=== PATIENT | male | born 1985 | race Caucasian/White ===

== ENCOUNTER 2021-05-26 19:00 | Emergency (ER) | payer OTHER, SELFPAY ==
[2021-05-26 19:08] VITALS: BP 115/62; PULSE 68; RESP 16; TEMP 36.7; O2SAT 98; BMI 23.7
[2021-05-26 19:54] VITALS: BP 131/69; PULSE 70; RESP 16; TEMP 36.2; O2SAT 96
[2021-05-26] MEDS: BACITRACIN OINT 0.9 GM PCKT 1 APPLIC TOP (22:12)
[2021-05-26 22:27] VITALS: BP 115/72; PULSE 60; RESP 16; O2SAT 99
--- NOTE | 2021-05-26 22:27 | ED_ITS ---
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 Comes in for further evaluation. He describes moderate pain, bleeding is controlled. Review of Systems Review of Systems Narrative: No recent fever, cough, chills. No nausea, vomiting diarrhea. No decreased sensation or musculoskeletal complaints of the upper extremities Patient History tobacco type: smokeless tobacco alcohol intake frequency: 0-2 drinks per day Substance Use Type: does not use Exam Narrative Exam Narrative: General: Alert appropriate in no acute distress Respiratory: Able to speak in full sentences, no obvious respiratory distress Skin: No obvious rashes, warm and dry Neurologic: Grossly intact no obvious asymmetries or abnormalities Psych: appropriate insight and affect, cooperative Extremity: Right index finger with a 1 cm laceration just on the tip cutting off the last 2 mm of his fingernail and not involving the nail bed. Bleeding is controlled. Wound is cleaned single suture placed. Initial Vital Signs Initial Vital Signs: Vital Signs Temperature 98.0 F 05/26/21 19:08 Pulse Rate 68 05/26/21 19:08 Respiratory Rate 16 05/26/21 19:08 Blood Pressure 115/62 05/26/21 19:08 Pulse Oximetry 98 05/26/21 19:08 Procedures Laceration Repair Right index finger: Time of procedure: 22:29 Site: upper extremity Side (If applicable): right Size (cm): 1 Description: linear Depth: simple, single layer Local Anesthetic: bupivacaine 0.5% Amount of anesthesia used (mL): 3 Pre-repair: wound explored and deep structures intact Skin layer closed with: nylon Size (cm): 4-0 Number of sutures: 1 Technique: simple, interrupted Course Orders Ordered: Discontinued Medications Bacitracin (Bacitracin Oint 0.9 Gm Pckt) 1 applic TOP NOW ONE Stop: 05/26/21 22:08 Last Admin: 05/26/21 22:12 Dose: 1 applic Documented by: EMILE Vital Signs Vital signs: Vital Signs - 8 hr 05/26/21 19:08 05/26/21 19:54 Temperature 98.0 F 97.1 F L Pulse Rate 68 70 Respiratory Rate 16 16 Blood Pressure 115/62 131/69 Pulse Oximetry 98 96 MDM - Wound/Laceration MDM Narrative Medical decision making narrative: 35-year-old gentleman with no significant medical issues has a small laceration to the distal portion right index finger after encountering a table saw this afternoon. The wound is shallow, does not extend significantly into the pad of the finger, does not come to the bone and no tendons are involved. neurovascularly intact. Wounds cleaned single sutures placed. Wound care instructions and follow-up instructions are reviewed. Patient is safe for home discharge Discharge Plan Departure Patient Disposition: Home Clinical Impression: Finger laceration Qualifiers: Encounter type: initial encounter Finger: index finger Damage to nail status: with damage Foreign body presence: without foreign body Laterality: right Qualified Code(s): S61.310A - Laceration without foreign body of right index finger with damage to nail, initial encounter Instructions: DI for Minor Laceration Activity Restrictions/Additional Instructions: Thank you for coming in today Fortunately, a table saw I only did a little bit of damage to the tip of your finger. The area was cleaned an a single suture was placed to help the wound heal faster. Please use antibiotic ointment and a Band-Aid to keep the wound covered. The s uture will need to come out on or about June 02. If you have any signs of infection, please return to the ER. I hope you heal quickly Referrals: Virginia Cox ND [Primary Care Provider] -
[2021-05-26 22:29] VITALS: BP 115/72; PULSE 62; RESP 17; O2SAT 99
== END 2021-05-26 22:31 | disposition home or self-care (01) ==
PROVIDERS: Emergency Provider Emergency Medicine; PCP Naturopath
DX: S61.310A Laceration without foreign body of right index finger with damage to nail, initial encounter (principal); W31.2XXA Contact with powered woodworking and forming machines, initial encounter; Y99.0 Civilian activity done for income or pay
CPT/HCPCS: 12001; 99283

== ENCOUNTER → 2022-06-03 11:04 | Outpatient (CLI) | payer OTHER, SELFPAY ==
[2022-06-03 12:12] LABS: Add Manual Diff / Slide Review NO; Basophils Absolute Auto 0 /uL (0-100); Basophils Percent Auto 0.9 % (0-2); Eosinophils Absolute Auto 100 /uL (0-450); Eosinophils Percent Auto 1.5 % (2-4); Hematocrit 41.3 % (41-53); Hemoglobin 14.5 g/dL (13.5-17.5); Lymphocytes Absolute Auto 1700 /uL (1100-4500); Lymphocytes Percent Auto 36.4 % (25-40); Mean Corpuscular HGB Conc 35.2 % (30-36); Mean Corpuscular Hemoglobin 31.1 PG (26-34); Mean Corpuscular Volume 88.3 fL (80-100); Monocytes Absolute Auto 500 /uL (0-900); Monocytes Percent Auto 11.5 % (3-14); Neutrophils Absolute Auto 2300 /uL (1500-7000); Neutrophils Percent Auto 49.7 % (50-75); Platelet Count 184 X10^3/uL (150-400); Red Blood Cell Count 4.68 X10^6/uL (4.5-5.9); Red Cell Distribution Width 12.9 % (11.6-14.8); White Blood Cell Count 4.6 X10^3/uL (4.5-11.0)
[2022-06-03 13:50] LABS: Alanine Aminotransferase 17 IU/L (<50); Albumin 4.6 g/dL (3.5-5.0); Albumin Globulin Ratio 1.6 (1.0-2.8); Alkaline Phosphatase 59 U/L (38-126); Aspartate Aminotransferase 30 IU/L (17-59); BUN Creatinine Ratio 14.7 (6-22); Bilirubin Total 0.7 mg/dL (0.2-1.3); Blood Urea Nitrogen 14 mg/dL (9-20); Calcium 9.1 mg/dL (8.4-10.2); Carbon Dioxide 28 mmol/L (22-32); Chloride 103 mmol/L (98-107); Cholesterol 206 mg/dL (140-199); Estimated Glomerular Filt Rate > 60 mL/min (>60); Globulin 2.9 g/dL (1.7-4.1); Glucose 100 mg/dL (70-100); HDL Cholesterol 70 mg/dL (40-60); HEMOLYSIS < 15 (0-50); LDL Cholesterol Calculated 123 mg/dL (<100); Potassium 3.9 mmol/L (3.4-5.1); Sodium 142 mmol/L (137-145); Total Protein 7.5 g/dL (6.3-8.2); Triglycerides 66 mg/dL (35-150)
[2022-06-03 14:32] LABS: Thyroid Stimulating Hormone 0.948 uIU/mL (0.47-4.68)
== END ==
PROVIDERS: PCP Naturopath; Referring Provider Naturopath; Visit Provider Naturopath
DX: Z00.00 Encounter for general adult medical examination without abnormal findings (principal); R53.83 Other fatigue
CPT/HCPCS: 36415; 80053; 80061; 84443; 85025

== ENCOUNTER → 2023-12-01 10:29 | Outpatient (CLI) | payer OTHER, SELFPAY ==
[2023-12-01 11:07] LABS: Add Manual Diff / Slide Review NO; Basophils Absolute Auto 0 /uL (0-100); Basophils Percent Auto 0.8 % (0-2); Eosinophils Absolute Auto 100 /uL (0-450); Eosinophils Percent Auto 2.2 % (2-4); Hematocrit 44.1 % (41-53); Hemoglobin 15.3 g/dL (13.5-17.5); Lymphocytes Absolute Auto 2000 /uL (1100-4500); Lymphocytes Percent Auto 39.5 % (25-40); Mean Corpuscular HGB Conc 34.7 % (30-36); Mean Corpuscular Hemoglobin 31.9 PG (26-34); Mean Corpuscular Volume 91.8 fL (80-100); Monocytes Absolute Auto 600 /uL (0-900); Monocytes Percent Auto 11.3 % (3-14); Neutrophils Absolute Auto 2300 /uL (1500-7000); Neutrophils Percent Auto 46.2 % (50-75); Platelet Count 207 X10^3/uL (150-400); Red Cell Distribution Width 13.1 % (11.6-14.8)
[2023-12-01 11:20] LABS: Alanine Aminotransferase 31 IU/L (<50); Albumin Globulin Ratio 1.9 (1.0-2.8); Alkaline Phosphatase 55 U/L (38-126); Aspartate Aminotransferase 42 IU/L (17-59); BUN Creatinine Ratio 13.5 (6-22); Bilirubin Total 0.8 mg/dL (0.2-1.3); Blood Urea Nitrogen 13 mg/dL (9-20); Calcium 9.7 mg/dL (8.4-10.2); Carbon Dioxide 29 mmol/L (22-32); Chloride 108 mmol/L (98-107); Cholesterol 233 mg/dL (140-199); Estimated Glomerular Filt Rate > 60 mL/min (>60); Gamma Glutamyl Transpeptidase 19 U/L (15-73); Globulin 2.7 g/dL (1.7-4.1); Glucose 97 mg/dL (70-100); HEMOLYSIS < 15 (0-50); Potassium 4.4 mmol/L (3.4-5.1); Sodium 143 mmol/L (137-145); Total Protein 7.7 g/dL (6.3-8.2); Triglycerides 119 mg/dL (35-150)
[2023-12-01 11:29] LABS: HDL Cholesterol 115 mg/dL (40-60); LDL Cholesterol Calculated 94 mg/dL (<100)
== END ==
PROVIDERS: PCP Naturopath; Referring Provider Naturopath; Visit Provider Naturopath
DX: Z00.00 Encounter for general adult medical examination without abnormal findings (principal); F10.10 Alcohol abuse, uncomplicated
CPT/HCPCS: 36415; 80053; 80061; 82977; 85025

== ENCOUNTER 2025-01-15 06:50 | Inpatient (IN) | payer OTHER, SELFPAY ==
[2025-01-15] VITALS (42 sets, daily range): BP systolic 120–147; BP diastolic 66–98; PULSE 62–94; RESP 14–32; TEMP 36.6–37.1; O2SAT 94–98; BMI 24.3; BMI 26.3
--- NOTE | 2025-01-15 07:18 | ED.ABDPAIN ---
HPI - Abdominal Pain General Chief Complaint: Abdominal Pain Stated Complaint: Stomach pain this morning Time Seen by Provider: 01/15/25 07:03 Source: patient, RN notes reviewed and old records reviewed Mode of arrival: Ambulatory Limitations: no limitations History of Present Illness HPI narrative: 39-year-old male with no reported medical issues with complaint of abdominal pain. Patient states woke up at 2:00 a.m. with a epigastric abdominal pain states it has a little bit towards his left shoulder. But that did not start until later in the day. He denies any fevers, denies any nausea states he induced emesis once to see if it would help his symptoms which it did not. Patient states he had normal bowel movement yesterday has not had any diarrhea overnight. No black or bloody stools. Denies dysuria, urgency or hematuria or other urinary changes. States pain is otherwise remain localized to that area. Has not had similar symptoms in the past. States movement makes it worse. Tried [id number] gas medication and peppermint oil without improvement. Patient states no daily medications. No prior surgeries. No known drug allergies. Uses smokeless tobacco, denies any regular alcohol use, no recreational drugs. He was accompanied by his . Related Data Allergies Allergy/AdvReac Type Severity Reaction Status Date / Time No Known Drug Allergies Allergy Verified 01/15/25 07:00 Review of Systems Review of Systems ROS Unobtainable: All systems reviewed & are unremarkable except as noted in HPI and below Patient History tobacco type: smokeless tobacco alcohol intake frequency: 0-2 drinks per day Exam Narrative Exam Narrative: GENERAL: Alert and oriented x three, moderate distress HEENT: Head normocephalic, atraumatic, EOMI, pupils reactive, face symmetric, moist mucous membranes NECK: Supple, full range of motion CARDIOVASCULAR: Regular rate and rhythm without murmurs, rubs or gallops. RESPIRATORY: Breath sounds equal bilaterally, no wheezes rales or rhonchi. ABDOMEN: Soft, mild epigastric tenderness. Normoactive bowel sounds all 4 quadrants. No guarding or rebound, rigidity, no mass, no pulsatile mass or bruit. : No CVA tenderness EXTREMITIES: Normal range of motion, no clubbing or edema. Neurovascularly intact. Positive pulses bilateral lower extremities. NEUROLOGICAL: Cranial nerves II through XII grossly intact. Moving all extremities SKIN: Warm, dry, no petechiae, no rashes or lesions. Initial Vital Signs Initial Vital Signs: Vital Signs Temperature 97.8 F 01/15/25 07:00 Pulse Rate 71 01/15/25 07:00 Respiratory Rate 16 01/15/25 07:00 Blood Pressure 129/71 01/15/25 07:00 Pulse Oximetry 96 01/15/25 07:00 Oxygen Delivery Method Room Air 01/15/25 07:00 Course Orders Ordered: ED Orders 01/15/25 07:04 EKG-12 Lead Stat 01/15/25 07:29 CT abdomen pelvis w con Stat 01/15/25 07:35 Complete Blood Count AUTO DIFF Stat Comprehensive Metabolic Panel Stat ETOH [Ethanol (ETOH)] Stat Lipase Stat dexmedeTOMIDine in 0.9 % NaCL (Precedex) 400 mcg in 100 mls @ 4.309 mls/hr IV TITRATE GINGER; Protocol Discontinued Medications Sodium Chloride (Normal Saline 0.9%) 1,000 mls @ 1,000 mls/hr IV BOLUS ONE Stop: 01/15/25 08:32 Last Infusion: 01/15/25 09:23 Dose: Infused Documented By: Admin: 01/15/25 08:07 Dose: 1,000 mls/hr Documented By: RB Ketorolac Tromethamine (Ketorolac 30 Mg/Ml Vial) 15 mg IV NOW ONE Stop: 01/15/25 07:29 Last Admin: 01/15/25 08:06 Dose: 15 mg Documented By: RB Morphine Sulfate (Morphine 4 Mg/Ml Inj) 4 mg IV NOW ONE Stop: 01/15/25 09:16 Last Admin: 01/15/25 09:40 Dose: Not Given Documented By: RB Morphine Sulfate (Morphine 4 Mg/Ml Inj) 4 mg IV NOW ONE Stop: 01/15/25 10:41 Last Admin: 01/15/25 10:54 Dose: 4 mg Documented By: RB Ondansetron HCl (Ondansetron 4 Mg/2 Ml Inj) 4 mg IV NOW PRN PRN Reason: Nausea And Vomiting Ondansetron HCl (Ondansetron 4 Mg Odt) 4 mg PO NOW PRN PRN Reason: Nausea And Vomiting Ondansetron HCl (Ondansetron 4 Mg/2 Ml Inj) 4 mg IV NOW ONE Stop: 01/15/25 07:29 Last Admin: 01/15/25 08:07 Dose: 4 mg Documented By: RB Oxycodone HCl (Oxycodone Ir 10 Mg Tablet) 10 mg PO NOW ONE Stop: 01/15/25 09:18 Last Admin: 01/15/25 09:40 Dose: Not Given Documented By: RB Oxycodone HCl (Oxycodone Ir 5 Mg Tablet) 10 mg PO NOW ONE Stop: 01/15/25 09:46 Last Admin: 01/15/25 09:42 Dose: 10 mg Documented By: RB Pantoprazole Sodium (Pantoprazole 40 Mg Vial) 40 mg IV NOW ONE Stop: 01/15/25 07:29 Last Admin: 01/15/25 08:05 Dose: 40 mg Documented By: RB Phenobarbital (Phenobarbital 65 Mg/Ml Vial) 260 mg IV NOW ONE Stop: 01/15/25 09:16 Last Admin: 01/15/25 09:23 Dose: Not Given Documented By: RB Phenobarbital (Phenobarbital 65 Mg/Ml Vial) 260 mg IV NOW ONE Stop: 01/15/25 09:18 Last Admin: 01/15/25 09:43 Dose: 260 mg Documented By: RB Vital Signs Vital signs: Vital Signs - 8 hr 01/15/25 07:00 01/15/25 07:44 01/15/25 07:45 Temperature 97.8 F Pulse Rate 71 72 69 Respiratory Rate 16 25 H 25 H Blood Pressure 129/71 Pulse Oximetry 96 96 97 Oxygen Delivery Method Room Air 01/15/25 07:45 01/15/25 08:00 01/15/25 08:00 Temperature Pulse Rate 81 Respiratory Rate 31 H Blood Pressure 135/82 122/73 Pulse Oximetry 95 Oxygen Delivery Method 01/15/25 08:30 01/15/25 09:00 01/15/25 09:30 Temperature Pulse Rate 77 72 81 Respiratory Rate 22 19 27 H Blood Pressure Pulse Oximetry 97 95 96 Oxygen Delivery Method MDM - Abdominal Pain Lab Data 01/15/25 07:35 01/15/25 07:35 Labs: Lab Results 01/15/25 Range/Units 07:35 WBC 8.1 (4.5-11.0) X10^3/uL RBC 4.39 L (4.5-5.9) X10^6/uL Hgb 14.4 (13.5-17.5) g/dL Hct 41.5 (41-53) % MCV 94.4 (80-100) fL MCH 32.8 (26-34) PG MCHC 34.7 (30-36) % RDW 13.8 (11.6-14.8) % Plt Count 104 L (150-400) X10^3/uL Neut % (Auto) 89.6 H (50-75) % Lymph % (Auto) 3.6 L (25-40) % [place] % (Auto) 6.5 (3-14) % Eos % (Auto) 0.1 L (2-4) % Baso % (Auto) 0.2 (0-2) % Neut # (Auto) 7300 H (9060-6505) /uL Lymph # (Auto) 300 L (1198-4459) /uL [place] # (Auto) 500 (0-900) /uL Eos # (Auto) 0 (0-450) /uL Baso # (Auto) 0 (0-100) /uL Sodium 138 (137-145) mmol/L Potassium 4.3 (3.4-5.1) mmol/L Chloride 100 (98-107) mmol/L Carbon Dioxide 26 (22-32) mmol/L BUN 14 (9-20) mg/dL Creatinine 0.80 (0.66-1.25) mg/dL Estimated GFR > 60 (>60) mL/min BUN/Creatinine Ratio 17.5 (6-22) Glucose 125 H (70-99) mg/dL Calcium 8.9 (8.4-10.2) mg/dL Total Bilirubin 0.8 (0.2-1.3) mg/dL AST 301 H (17-59) IU/L ALT 227 H (<50) IU/L Alkaline Phosphatase 73 (38-126) U/L Total Protein 7.4 (6.3-8.2) g/dL Albumin 4.8 (3.5-5.0) g/dL Globulin 2.6 (1.7-4.1) g/dL Albumin/Globulin Ratio 1.8 (1.0-2.8) Lipase 9193 H (23-300) U/L Ethyl Alcohol 174 H (<10) mg/dL ECG Data Attestation: I personally reviewed and interpreted this ECG as follows: Prior ECG tracings: not available for review Interpretation: Sinus rhythm rate of 69 MA 198 QRS of 102 QTC of 430, no acute ST elevation depression noted incomplete right bundle-branch. No prior for comparison. MDM Narrative Medical decision making narrative: Labs normal white count, hemoglobin 14.4 platelets are 104 were to 0 7 in November of 2023. Predominance of neutrophils. Show normal electrolytes, BUN creatinine, glucose of 125, bilirubin is 0.8 AST is 301, ALT is 227, lipase is 9193. Did review patient's old labs from November 2023 triglycerides were 119. Etoh is 174. EKG sinus rhythm incomplete right bundle CT imaging shows severe hepatic steatosis, no biliary dilation enlarged pancreas with a significant peripancreatic fat stranding and fluid no discrete well-defined fluid collection seen. No pancreatic ductal dilation. No discrete pancreatic mass noted. Findings consistent with acute pancreatitis with [id number] amount of peripancreatic fluid and fat stranding. No discrete drainable well-defined pseudocyst formation at this time. No significant pancreatic ductal dilation or discrete pancreatic mass. No peritoneal free air. No bowel obstruction or abnormal bowel wall thickening. No abscess collection. Severe hepatic steatosis. Patient received fluids, Toradol, Zofran and Protonix, phenobarbital and oxycodone p.o, morphine, Precedex drip 39-year-old male after further discussion states he drinks about a 5th of vodka daily. Patient has not been doing this for at least several weeks. States he was does has a had some withdrawal symptoms currently last drink was last night. No hallucinations or seizures in the past or currently. Patient had some improvement with the pain medication and fluids but still in quite uncomfortable. Spoke with hospitalist Dr. Ruffin at 9:20am, defers admission states if tolerating clear liquid and oral pain medication would sent home. If patient was not tolerating these can call back. Dr. Ruffin recontacted @ 1030: Reviewed patient's chart accepts for inpatient ICU. Discussed patient had phenobarbital still having withdrawal symptoms can start Precedex drip. Did relay patient ask that has not currently wear of alcohol use and he would prefer not to share with her at this time. Discussed with the patient he was agreeable for admission. Critical Care Time Critical Care Time Critical Care Time: Yes Total Critical Care Time: 35 Attestation: The high probability of a clinically significant, sudden or life threatening deterioration of the [systems] system(s) required my full and direct attention, intervention and personal management. The aggregate critical care time was [--] minutes. This time is in addition to time spent performing reported procedures but includes the following: [x] Data Review and interpretation [x] Patient assessment and monitoring of vital signs [x] Documentation [x] Medication orders and management Discharge Plan Departure Patient Disposition: Admitted As Inpatient Clinical Impression: Pancreatitis, Alcohol withdrawal Admit Date/Time: 01/15/25 10:40 Admit Provider: Ammon Ruffin
--- NOTE | 2025-01-15 07:29 | DI.CT.S_ITS ---
PROCEDURE: CT ABDOMEN PELVIS W CON INDICATIONS: epigastric pain, sudden onset 2am. TECHNIQUE: After the administration of intravenous contrast, axial sections acquired from the lung bases to the pubic symphysis. Coronal and sagittal reformats were performed. For radiation dose reduction, the following was used: automated exposure control, adjustment of mA and/or kV according to patient size. COMPARISON: None. FINDINGS: Image quality: Diagnostic. Lower Chest: No significant findings. ABDOMEN: Liver: No solid mass. Severe hepatic steatosis. Gallbladder: No radiopaque gallstones or wall thickening. Biliary ducts: No biliary dilation. Pancreas: Enlarged pancreas with significant peripancreatic fat stranding and fluid. No discrete well-defined fluid collection is seen. No pancreatic ductal dilatation. No discrete pancreatic mass is noted. Spleen: Size is within normal limits. Adrenal Glands: No adrenal nodules. Kidneys and Ureters: No hydronephrosis. No solid mass. No complex renal cystic lesion which requires follow up. Stomach and Bowel: No bowel obstruction. No abnormal bowel wall thickening. No abscess collection. No CT evidence of acute appendicitis or diverticulitis. Peritoneum: No other area of abnormal intraperitoneal fluid. No free air. Ventral Wall: No significant ventral hernia. Abdominal Nodes: No retroperitoneal or mesenteric adenopathy by size criteria. Vessels: Aorta and inferior vena cava are normal in size. PELVIS: Pelvic Organs: Unremarkable. Bladder: No bladder wall thickening, accounting for underdistention. Pelvic Nodes: No enlarged lymph nodes. Miscellaneous: No inguinal hernias are seen. Bones: No aggressive osseous abnormality. IMPRESSION: 1. Finding is consistent with acute pancreatitis. Small to moderate amount of peripancreatic fluid fluid and fat stranding. No discrete drainable well- defined pseudocyst formation at this time. No significant pancreatic ductal dilatation or discrete pancreatic mass. 2. No peritoneal free air. No bowel obstruction or abnormal bowel wall thickening. No abscess collection. 3. Severe hepatic steatosis. Dictated by: Jean Paul Son M.D. on 01/15/2025 at 8:41 Approved by: Jean Paul Son M.D. on 01/15/2025 at 8:44
--- NOTE | 2025-01-15 07:40 | EKG_ITS ---
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
[2025-01-15 07:45] LABS: Add Manual Diff / Slide Review NO; Basophils Absolute Auto 0 /uL (0-100); Basophils Percent Auto 0.2 % (0-2); Eosinophils Absolute Auto 0 /uL (0-450); Eosinophils Percent Auto 0.1 % (2-4); Hematocrit 41.5 % (41-53); Hemoglobin 14.4 g/dL (13.5-17.5); Lymphocytes Absolute Auto 300 /uL (1100-4500); Lymphocytes Percent Auto 3.6 % (25-40); Mean Corpuscular HGB Conc 34.7 % (30-36); Mean Corpuscular Hemoglobin 32.8 PG (26-34); Mean Corpuscular Volume 94.4 fL (80-100); Monocytes Absolute Auto 500 /uL (0-900); Monocytes Percent Auto 6.5 % (3-14); Neutrophils Absolute Auto 7300 /uL (1500-7000); Neutrophils Percent Auto 89.6 % (50-75); Platelet Count 104 X10^3/uL (150-400); Red Blood Cell Count 4.39 X10^6/uL (4.5-5.9); Red Cell Distribution Width 13.8 % (11.6-14.8); White Blood Cell Count 8.1 X10^3/uL (4.5-11.0)
[2025-01-15] MEDS: PANTOPRAZOLE 40 MG VIAL IV (08:05)
[2025-01-15] MEDS: KETOROLAC 30 MG/ML VIAL 15 MG IV (08:06)
[2025-01-15] MEDS: ONDANSETRON 4 MG/2 ML INJ IV ×2 (08:07→20:40)
[2025-01-15] MEDS: SODIUM CHLORIDE 0.9% 1,000 ML 1000 ML IV (08:07)
[2025-01-15 08:13] LABS: Alanine Aminotransferase 227 IU/L (<50); Albumin 4.8 g/dL (3.5-5.0); Albumin Globulin Ratio 1.8 (1.0-2.8); Alkaline Phosphatase 73 U/L (38-126); Aspartate Aminotransferase 301 IU/L (17-59); BUN Creatinine Ratio 17.5 (6-22); Bilirubin Total 0.8 mg/dL (0.2-1.3); Blood Urea Nitrogen 14 mg/dL (9-20); Calcium 8.9 mg/dL (8.4-10.2); Carbon Dioxide 26 mmol/L (22-32); Chloride 100 mmol/L (98-107); Estimated Glomerular Filt Rate > 60 mL/min (>60); Globulin 2.6 g/dL (1.7-4.1); Glucose 125 mg/dL (70-99); HEMOLYSIS < 15 (0-50); Potassium 4.3 mmol/L (3.4-5.1); Sodium 138 mmol/L (137-145); Total Protein 7.4 g/dL (6.3-8.2)
[2025-01-15 08:48] LABS: Lipase 9193 U/L (23-300)
--- NOTE | 2025-01-15 09:17 | PM.CALLCOV.1 ---
Call Coverage Note Note Narrative of Care Provided: 39 M with probable alcoholic pancreatitis. CT shows pancreatitis without concern for necrosis. No biliary dilatation. Labs show no sign of infection. Vitals are unremarkable. Patient can trial liquids and oral pain medications. If no tolerance of diet or pain not controled with oral opiates, can admit for fluid hydration and pain control.
[2025-01-15 09:27] LABS: Ethanol (ETOH) 174 mg/dL (<10)
[2025-01-15] MEDS: OXYCODONE IR 5 MG TABLET 10 MG PO ×3 (09:42→20:40)
[2025-01-15] MEDS: PHENobarbital 65 MG/ML VIAL 260 MG IV (09:43)
[2025-01-15] MEDS: MORPHINE 4 MG/ML INJ IV (10:54)
[2025-01-15] MEDS: dexmedeTOMIDine in 0.9 % NaCL 400 MCG/100 ML PLAST..BAG IV (11:46)
[2025-01-15] MEDS: LORazepam 1 MG TABLET PO (12:18)
[2025-01-15 13:20] LABS: Bacteria Urine None Seen; Culture Indicated Urine Cult Not Indicated; RBC Urine 0-1/HPF (0-5/HPF); Squamous Epithelial Cell Urine 0-1 /HPF (0-5/HPF); Urine Volume 10mL (spun); WBC Urine None Seen (0-5/HPF)
[2025-01-15] MEDS: SODIUM CHLORIDE 0.9% 1,000 ML 100 ML IV (14:22)
--- NOTE | 2025-01-15 14:38 | PC.ADMIT ---
[address] Admission Note: Pt admitted to ICU rm 227 at approx. 1350 from ED. Pt able to transfer self from stretcher to ICU bed. A&Ox4, NSR on monitor. RA 95%, able to make needs known. Oriented to room. Medication as charted on OCT. Seizure pads in place, bed alarm active, suction at bedside. Care ongoing. The patient,Jhon Curtis,39 y/o, was given written information regarding hospital policies, unit procedures and contact persons. Patient's smoking status: . Vital Signs - 8 hr 01/15/25 07:00 01/15/25 07:44 01/15/25 07:45 Temperature 97.8 F Pulse Rate 71 72 69 Respiratory Rate 16 25 H 25 H Blood Pressure 129/71 Pulse Oximetry 96 96 97 Oxygen Delivery Method Room Air 01/15/25 07:45 01/15/25 08:00 01/15/25 08:00 Temperature Pulse Rate 81 Respiratory Rate 31 H Blood Pressure 135/82 122/73 Pulse Oximetry 95 Oxygen Delivery Method 01/15/25 08:30 01/15/25 09:00 01/15/25 09:30 Temperature Pulse Rate 77 72 81 Respiratory Rate 22 19 27 H Blood Pressure Pulse Oximetry 97 95 96 Oxygen Delivery Method 01/15/25 10:00 01/15/25 10:30 01/15/25 11:00 Temperature Pulse Rate 90 92 H 79 Respiratory Rate 32 H 26 H 25 H Blood Pressure Pulse Oximetry 96 98 95 Oxygen Delivery Method 01/15/25 11:30 01/15/25 11:44 01/15/25 11:44 Temperature Pulse Rate 78 83 Respiratory Rate 19 27 H Blood Pressure 131/81 Pulse Oximetry 94 95 Oxygen Delivery Method Room Air 01/15/25 12:00 01/15/25 12:00 01/15/25 12:30 Temperature Pulse Rate 78 Respiratory Rate 25 H Blood Pressure 122/72 120/72 Pulse Oximetry 94 Oxygen Delivery Method Room Air 01/15/25 12:30 01/15/25 13:00 01/15/25 13:00 Temperature Pulse Rate 81 74 Respiratory Rate 30 H 20 Blood Pressure 127/76 Pulse Oximetry 94 95 Oxygen Delivery Method Room Air 01/15/25 13:30 01/15/25 13:30 Temperature Pulse Rate 72 Respiratory Rate 22 Blood Pressure 130/83 Pulse Oximetry 94 Oxygen Delivery Method
--- NOTE | 2025-01-15 15:40 | PM.HP.1 ---
History of Present Illness History of Present Illness Date Patient Seen: 01/15/25 Time Patient Seen: 14:30 Chief complaint: Stomach pain this morning Narrative: 39 year old male with remote heroin use, EtOH use presented with epigastric abdominal pain starting at 2am this morning. This was sharp, non-radiating pain. Not associated with fever or chills. He has no melena, BRBPR, or hematemesis. He actually denies much nausea or vomiting. He has never had anything like this before. For the past 5 months he has been drinking 1/2 of a fifth of Vodka per day. He has not previously had withdrawals but has never tried to stop drinking. In the ER lipase was >9000. Given fairly minimal pancreatitis symptoms, asked ER to trial diet and pain control for possible outpatient treatment. However shortly after this patient started to withdrawal, with EtOH level of 174. Received 2x 260 mg doses of phenobarb. Patient subsequently started on librium and precedex and admitted to the ICU for treatment of alcohol withdrawal. [facility] Social History household members: spouse and children alcohol intake: current Meds Home Medications and Allergies Home Medications ?Medication ?Instructions ?Recorded ?Confirmed ?Type No Known Home Medications 01/15/25 01/15/25 History Allergies Allergy/AdvReac Type Severity Reaction Status Date / Time No Known Drug Allergies Allergy Verified 01/15/25 07:00 Review of Systems Review of Systems Narrative: All other systems reviewed with the patient and are negative unless otherwise stated. Exam Vital Signs (past 8 hours): - 01/15/25 07:44 01/15/25 07:45 01/15/25 07:45 Pulse Rate 72 69 Respiratory Rate 25 H 25 H Blood Pressure 135/82 Pulse Oximetry 96 97 Oxygen Delivery Method 01/15/25 08:00 01/15/25 08:00 01/15/25 08:30 Pulse Rate 81 77 Respiratory Rate 31 H 22 Blood Pressure 122/73 Pulse Oximetry 95 97 Oxygen Delivery Method 01/15/25 09:00 01/15/25 09:30 01/15/25 10:00 Pulse Rate 72 81 90 Respiratory Rate 19 27 H 32 H Blood Pressure Pulse Oximetry 95 96 96 Oxygen Delivery Method 01/15/25 10:30 01/15/25 11:00 01/15/25 11:30 Pulse Rate 92 H 79 78 Respiratory Rate 26 H 25 H 19 Blood Pressure Pulse Oximetry 98 95 94 Oxygen Delivery Method 01/15/25 11:44 01/15/25 11:44 01/15/25 12:00 Pulse Rate 83 78 Respiratory Rate 27 H 25 H Blood Pressure 131/81 Pulse Oximetry 95 94 Oxygen Delivery Method Room Air Room Air 01/15/25 12:00 01/15/25 12:30 01/15/25 12:30 Pulse Rate 81 Respiratory Rate 30 H Blood Pressure 122/72 120/72 Pulse Oximetry 94 Oxygen Delivery Method Room Air 01/15/25 13:00 01/15/25 13:00 01/15/25 13:30 Pulse Rate 74 72 Respiratory Rate 20 22 Blood Pressure 127/76 Pulse Oximetry 95 94 Oxygen Delivery Method 01/15/25 13:30 01/15/25 14:01 01/15/25 14:03 Pulse Rate 73 64 Respiratory Rate 27 H 19 Blood Pressure 130/83 131/75 Pulse Oximetry 95 94 Oxygen Delivery Method 01/15/25 14:35 01/15/25 15:00 Pulse Rate 66 69 Respiratory Rate 20 31 H Blood Pressure 131/75 Pulse Oximetry 94 94 Oxygen Delivery Method Oxygen Delivery Method Room Air Narrative Exam Narrative: General:? Patient is well developed and well nourished, mildly diaphoretic and tremulous. Lungs:? CTA b/l no wheezing rhonchi or rales. Cardio:?RRR no m/r/g. Abdomen: S NT ND. No CVA tenderness. Musculoskeletal:? Muscle strength and tone are equal within normal limits, no deformity. Extremities: No edema or joint effusions. No cyanosis or clubbing. Neuro:? Alert and orientated x3,? sensation to touch intact in all extremities, no gross deficits noted of cranial nerves. Objective ECG Impression: NSR incomplete RBBB Labs 01/15/25 07:35 01/15/25 07:35 Labs: Laboratory Results - last 24 hr 01/15/25 01/15/25 07:35 12:40 WBC 8.1 RBC 4.39 L Hgb 14.4 Hct 41.5 MCV 94.4 MCH 32.8 MCHC 34.7 RDW 13.8 Plt Count 104 L Neut % (Auto) 89.6 H Lymph % (Auto) 3.6 L [place] % (Auto) 6.5 Eos % (Auto) 0.1 L Baso % (Auto) 0.2 Neut # (Auto) 7300 H Lymph # (Auto) 300 L [place] # (Auto) 500 Eos # (Auto) 0 Baso # (Auto) 0 Sodium 138 Potassium 4.3 Chloride 100 Carbon Dioxide 26 BUN 14 Creatinine 0.80 Estimated GFR > 60 BUN/Creatinine Ratio 17.5 Glucose 125 H Calcium 8.9 Total Bilirubin 0.8 AST 301 H ALT 227 H Alkaline Phosphatase 73 Total Protein 7.4 Albumin 4.8 Globulin 2.6 Albumin/Globulin Ratio 1.8 Lipase 9193 H Urine RBC 0-1/hpf Urine WBC None seen Ur Squamous Epith Cells 0-1 /hpf Urine Bacteria None seen Ur Culture Indicated? Cult not indicated Vol Urine Centrifuged 10ml (spun) Ethyl Alcohol 174 H Assessment & Plan Assessment & Plan narrative: 1. Alcohol withdrawal - admit to ICU, start librium 50 TID - CIWA with PO ativan and IV valium due to drug shortages - also on precedex infusion for symptom control - last drink was approx 10 am on 01/15. EtOH level 174 on admit. 2. Alcoholic pancreatitis - continue pain control and IV fluids - mild pain currently, can try on clear liquids and advance diet as tolerated - if worsening pain with liquids move to NPO status. 3. Alcoholic hepatitis - mildly elevated AST/ALT at 301/227 respectively. Tbili 0.8. - will check coags tomorrow to calculate discriminant function, though suspect low with no need for steroids. Code: Full, surrogate is patient's spouse DVT: Lovenox daily I have utilized all available immediate resources to obtain, update, or review the patient's current medications. Dispo: patient admitted under inpatient status to the ICU. Likely discharge home in 2-4 days. Additional history obtained via discussions with the ER provider. These discussions contributed to the creation of the above assessment and plan. I have reviewed patient's presenting documentation, labs, and imaging personally. I spent 35 minutes providing critical care management this patient. This excludes time spent in performing separately billed procedures. Time-Based Coding :: [TOTAL MINUTES] spent with patient and on the chart (including review of chart, obtaining history, exam, reviewing outside data, placing orders, documenting exam and treatment plan, and counseling patient) on [DATE]. Quality VTE Deep Vein Thrombosis/Pulmonary Embolism Present on Admission: No
[2025-01-15] MEDS: chlordiazePOXIDE 25 MG CAPSULE 50 MG PO ×2 (15:50→20:41)
[2025-01-15] MEDS: SODIUM CHLORIDE 0.9% FLUSH 10 ML IV (20:42)
[2025-01-16] VITALS (55 sets, daily range): BP systolic 125–151; BP diastolic 76–92; PULSE 61–88; RESP 15–33; TEMP 36.9–37; O2SAT 92–96
[2025-01-16] MEDS: SODIUM CHLORIDE 0.9% 1,000 ML 100 ML IV ×3 (00:40→20:49)
[2025-01-16] MEDS: dexmedeTOMIDine in 0.9 % NaCL 400 MCG/100 ML PLAST..BAG 6.464 MCG IV ×2 (03:10→16:45)
[2025-01-16] MEDS: OXYCODONE IR 5 MG TABLET 10 MG PO ×2 (04:45→15:21)
[2025-01-16 05:42] LABS: Add Manual Diff / Slide Review NO; Basophils Absolute Auto 0 /uL (0-100); Basophils Percent Auto 0.4 % (0-2); Eosinophils Absolute Auto 100 /uL (0-450); Eosinophils Percent Auto 1.1 % (2-4); Hematocrit 39.7 % (41-53); Lymphocytes Absolute Auto 500 /uL (1100-4500); Lymphocytes Percent Auto 6.8 % (25-40); Mean Corpuscular HGB Conc 35.2 % (30-36); Mean Corpuscular Volume 93.8 fL (80-100); Monocytes Absolute Auto 600 /uL (0-900); Monocytes Percent Auto 9.6 % (3-14); Neutrophils Absolute Auto 5500 /uL (1500-7000); Neutrophils Percent Auto 82.1 % (50-75); Platelet Count 80 X10^3/uL (150-400); Red Blood Cell Count 4.23 X10^6/uL (4.5-5.9); Red Cell Distribution Width 13.7 % (11.6-14.8); White Blood Cell Count 6.7 X10^3/uL (4.5-11.0)
[2025-01-16 05:50] LABS: INR 1.1 (0.9-1.3); Prothrombin Time 12.2 SECONDS (9.4-12.5)
[2025-01-16 05:53] LABS: PTT Partial Thromboplastin Tim 29 SECONDS (25.1-36.5)
[2025-01-16 05:55] LABS: Alanine Aminotransferase 147 IU/L (<50); Albumin 3.8 g/dL (3.5-5.0); Albumin Globulin Ratio 1.6 (1.0-2.8); Alkaline Phosphatase 53 U/L (38-126); Aspartate Aminotransferase 167 IU/L (17-59); BUN Creatinine Ratio 18.8 (6-22); Bilirubin Total 1.2 mg/dL (0.2-1.3); Blood Urea Nitrogen 15 mg/dL (9-20); Calcium 8.1 mg/dL (8.4-10.2); Carbon Dioxide 25 mmol/L (22-32); Chloride 101 mmol/L (98-107); Estimated Glomerular Filt Rate > 60 mL/min (>60); Globulin 2.4 g/dL (1.7-4.1); Glucose 91 mg/dL (70-99); HEMOLYSIS < 15 (0-50); Magnesium 1.4 mg/dL (1.6-2.3); Potassium 3.5 mmol/L (3.4-5.1); Sodium 133 mmol/L (137-145); Total Protein 6.2 g/dL (6.3-8.2)
--- NOTE | 2025-01-16 08:25 | P.PN_ITS ---
Subjective Subjective Date Patient Seen: 01/16/25 Interval history: Chief complaint: Alcohol withdrawal and abdominal pain with pancreatitis History of present illness: 01/15: 39 year old male with remote heroin use, EtOH use presented with epigastric abdominal pain starting at 2am this morning. This was sharp, non- radiating pain. Not associated with fever or chills. He has no melena, BRBPR, or hematemesis. He actually denies much nausea or vomiting. He has never had anything like this before. For the past 5 months he has been drinking 1/2 of a fifth of Vodka per day. He has not previously had withdrawals but has never tried to stop drinking. In the ER lipase was >9000. Given fairly minimal pancreatitis symptoms, asked ER to trial diet and pain control for possible outpatient treatment. However shortly after this patient started to withdrawal, with EtOH level of 174. Received 2x 260 mg doses of phenobarb. Patient subsequently started on librium and precedex and admitted to the ICU for treatment of alcohol withdrawal. 39 M with probable alcoholic pancreatitis. CT shows pancreatitis without concern for necrosis. No biliary dilatation. Labs show no sign of infection. Vitals are unremarkable. Patient can trial liquids and oral pain medications. If no tolerance of diet or pain not controled with oral opiates, can admit for fluid hydration and pain control. Hospital course: 01/16: Escalating agitation as the day progressed phenobarbital scheduled added to is IV benzodiazepines scheduled Librium and Precedex Having epigastric pain after yellow or clear liquids Review of systems: No chest pains or shortness a breath No paresthesia paresis No urinary symptom Physical exam: Somewhat tremulous flushed faced uncomfortable appearing young male HEENT swollen facial features Heart rate and rhythm regular hyperdynamic Lungs clear Abdomen nondistended Epigastric tenderness Extremities no edema Assessment and plan: 1. Alcohol withdrawal - admit to ICU, start librium 50 TID - CIWA with PO ativan and IV valium due to drug shortages - also on precedex infusion for symptom control - last drink was approx 10 am on 01/15. EtOH level 174 on admit. - Add scheduled and as needed phenobarbital 2. Alcoholic pancreatitis - continue pain control and IV fluids - mild pain currently, can try on clear liquids and advance diet as tolerated - if worsening pain with liquids move to NPO status. 3. Alcoholic hepatitis - mildly elevated AST/ALT at 301/227 respectively. Tbili 0.8. - will check coags tomorrow to calculate discriminant function, though suspect low with no need for steroids. Code: Full, surrogate is patient's spouse DVT: Lovenox daily Dispo: patient admitted under inpatient status to the ICU. Likely discharge home in 2-4 days. Time-Based Coding :: 35 minutes spent with patient and on the chart (including review of chart, obtaining history, exam, reviewing outside data, placing orders, documenting exam and treatment plan, and counseling patient) Exam Vital Signs (past 8 hours): - 01/16/25 00:30 01/16/25 01:00 01/16/25 01:30 Pulse Rate 62 65 65 Respiratory Rate 15 18 15 Blood Pressure Pulse Oximetry 95 95 95 Oxygen Flow Rate 01/16/25 02:00 01/16/25 02:00 01/16/25 02:00 Pulse Rate 63 63 Respiratory Rate 17 17 Blood Pressure 128/81 128/81 Pulse Oximetry 94 94 Oxygen Flow Rate 0 01/16/25 02:30 01/16/25 03:00 01/16/25 03:30 Pulse Rate 74 63 64 Respiratory Rate 23 16 18 Blood Pressure Pulse Oximetry 95 94 95 Oxygen Flow Rate 01/16/25 04:00 01/16/25 04:00 01/16/25 04:00 Pulse Rate 61 61 Respiratory Rate 17 Blood Pressure 136/83 136/83 Pulse Oximetry 95 Oxygen Flow Rate 01/16/25 04:15 01/16/25 04:15 01/16/25 04:16 Pulse Rate 65 Respiratory Rate Blood Pressure 132/79 136/83 Pulse Oximetry 95 Oxygen Flow Rate 01/16/25 04:16 01/16/25 04:30 01/16/25 05:00 Pulse Rate 66 72 63 Respiratory Rate 26 H 23 18 Blood Pressure Pulse Oximetry 94 95 95 Oxygen Flow Rate 01/16/25 05:30 01/16/25 06:00 Pulse Rate 63 62 Respiratory Rate 17 17 Blood Pressure 140/88 Pulse Oximetry 94 94 Oxygen Flow Rate Oxygen Delivery Method Room Air Oxygen Flow Rate 0 Objective Labs 01/16/25 04:38 01/16/25 04:38 Labs: Laboratory Results - last 24 hr 01/15/25 01/15/25 01/16/25 07:35 12:40 04:38 WBC 6.7 RBC 4.23 L Hgb 14.0 Hct 39.7 L MCV 93.8 MCH 33.0 MCHC 35.2 RDW 13.7 Plt Count 80 L Neut % (Auto) 82.1 H Lymph % (Auto) 6.8 L [place] % (Auto) 9.6 Eos % (Auto) 1.1 L Baso % (Auto) 0.4 Neut # (Auto) 5500 Lymph # (Auto) 500 L [place] # (Auto) 600 Eos # (Auto) 100 Baso # (Auto) 0 PT 12.2 INR 1.1 APTT 29 Sodium 133 L Potassium 3.5 Chloride 101 Carbon Dioxide 25 BUN 15 Creatinine 0.80 Estimated GFR > 60 BUN/Creatinine Ratio 18.8 Glucose 91 Calcium 8.1 L Magnesium 1.4 L Total Bilirubin 1.2 AST 167 H ALT 147 H Alkaline Phosphatase 53 Total Protein 6.2 L Albumin 3.8 Globulin 2.4 Albumin/Globulin Ratio 1.6 Lipase 9193 H Urine RBC 0-1/hpf Urine WBC None seen Ur Squamous Epith Cells 0-1 /hpf Urine Bacteria None seen Ur Culture Indicated? Cult not indicated Vol Urine Centrifuged 10ml (spun) Ethyl Alcohol 174 H PFSH Social History household members: spouse and children alcohol intake: current Assessment & Plan Time-Based Coding :: [TOTAL MINUTES] spent with patient and on the chart (including review of chart, obtaining history, exam, reviewing outside data, placing orders, documenting exam and treatment plan, and counseling patient) on [DATE]. Quality VTE Deep Vein Thrombosis/Pulmonary Embolism Present on Admission: No
[2025-01-16] MEDS: MULTIVITAMIN 1 TABLET 1 TAB PO (09:16)
[2025-01-16] MEDS: FOLIC ACID 1 MG TABLET PO (09:16)
[2025-01-16] MEDS: ENOXAPARIN 40 MG/0.4 ML SYRINGE SUBCUT (09:16)
[2025-01-16] MEDS: chlordiazePOXIDE 25 MG CAPSULE 50 MG PO ×3 (09:16→20:48)
[2025-01-16] MEDS: SODIUM CHLORIDE 0.9% FLUSH 10 ML IV ×2 (09:17→20:49)
--- NOTE | 2025-01-16 11:06 | CM.DANOTE ---
DCP Assessment Note: Pt is a 39yo male, resident of [place], is admitted for pancreatitis and ETOH withdrawal. Pt lives in a house with his spouse and 4week old daughter. Pt's Primary Care Provider is Dr. Keyona Cox [place] and insurance is [employer]. Reviewed chart and discussed with multidisciplinary team pt's medical status and initial discharge needs. Per hospitalist, pt not able to tolerate liquids without pain yet. Pt reported to drinking 1/2 of a 5th of ETOH a day and some heroin use. Precedex treatment will continue. Per RN, pt CIWA 5-7. DCP met w/patient at bedside; introduced self and role. Patient was found in bed, somnolent but cooperative with assessment. Pt confirmed living situation and good support in spouse. Pt expressed preference in discharge home. Pt denies any history with [facility] or MH counseling, no AA involvement. Pt would benefit from [facility] IOP or even [facility] residential treatment, will need to have this conversation and refer resources when pt more awake and receptive. Plan: Anticipating discharge home with spouse when medically cleared, [facility] resources at discharge would be helpful if receptive. CM team will follow closely for coordination of discharge plans. Alla Tovar [facility] Discharge Planning/Care Management CM Discharge Assessment Start: 01/15/25 11:02 Freq: Status: Active Protocol: Document 01/16/25 11:04 MW (Rec: 01/16/25 11:06 MW Desktop) Discharge Planning Assessment Assigned Discharge CRISTOPHER [employer] Executive DPOA/Assigned Destini, Spouse Designee Name Contact Information [phone] Advance Directives? No History Provided By Patient,Medical Record Has Patient been No admitted in last 30 days? Prior Living House Arrangements Comment [place] Household Members spouse,children Comment 4week old daughter and 3 dogs Type of Drives own vehicle transporation used prior to admit Independent with ADL Yes 's Is patient alert and Yes oriented? Caregiver for Yes: Child Another Barriers to No Discharge Discharge Plan Home Transportation Spouse, Destini Arrangement Whiteboard Updated Yes in Patient Room with name and ext. # of Tutor Coordinator Comment [phone] Review Status In Process Please Provide Date 01/16/25 Initial DC Assessment Was Performed
[2025-01-16] MEDS: MAGNESIUM CHLORIDE 64 MG TABLET 128 MG PO (12:14)
[2025-01-16] MEDS: LORazepam 1 MG TABLET PO (14:10)
[2025-01-16] MEDS: diazePAM 10 MG/2 ML SYRINGE IV (15:20)
[2025-01-16 16:01] LABS: MRSA (Nasal) PCR NOT DETECTED (Not Detect)
--- NOTE | 2025-01-16 17:20 | PC.NURSE ---
Day shift: Pt A&Ox4, restless and anxious. CIWA 6-12, treated per protocol. Pt ambulated in room, gait unsteady even with FWW to BR and in room. Reports continued anxiety and restlessness. Provider notified. New orders received. Pt educated on reason for clear liquid diet. Vital signs WDL. Seizure pads in place, suction at bedside, bed alarm active. Care ongoing.
[2025-01-16] MEDS: PHENobarbital 65 MG/ML VIAL IV ×2 (17:57→23:31)
[2025-01-16] MEDS: NICOTINE 14 PATCH 14 MG TOP (18:21)
[2025-01-17] VITALS (60 sets, daily range): BP systolic 94–170; BP diastolic 55–108; PULSE 67–110; RESP 16–39; TEMP 35.7–38.2; O2SAT 92–99
[2025-01-17] MEDS: PHENobarbital 65 MG/ML VIAL IV ×3 (06:00→18:12)
[2025-01-17] MEDS: SODIUM CHLORIDE 0.9% 1,000 ML 100 ML IV ×2 (06:00→16:34)
[2025-01-17] MEDS: dexmedeTOMIDine in 0.9 % NaCL 400 MCG/100 ML PLAST..BAG 6.464 MCG IV (06:59)
[2025-01-17] MEDS: chlordiazePOXIDE 25 MG CAPSULE 50 MG PO ×3 (08:42→21:13)
[2025-01-17] MEDS: MULTIVITAMIN 1 TABLET 1 TAB PO (08:42)
[2025-01-17] MEDS: NICOTINE 14 PATCH 14 MG TOP (08:43)
[2025-01-17] MEDS: FOLIC ACID 1 MG TABLET PO (08:43)
[2025-01-17] MEDS: SODIUM CHLORIDE 0.9% FLUSH 10 ML IV ×2 (08:51→21:13)
[2025-01-17 09:05] LABS: Add Manual Diff / Slide Review NO; Basophils Absolute Auto 0 /uL (0-100); Basophils Percent Auto 0.4 % (0-2); Eosinophils Absolute Auto 200 /uL (0-450); Eosinophils Percent Auto 1.7 % (2-4); Hematocrit 42.4 % (41-53); Hemoglobin 14.7 g/dL (13.5-17.5); Lymphocytes Absolute Auto 600 /uL (1100-4500); Lymphocytes Percent Auto 6.6 % (25-40); Mean Corpuscular HGB Conc 34.6 % (30-36); Mean Corpuscular Hemoglobin 32.9 PG (26-34); Mean Corpuscular Volume 94.9 fL (80-100); Monocytes Absolute Auto 900 /uL (0-900); Monocytes Percent Auto 9.7 % (3-14); Neutrophils Absolute Auto 7700 /uL (1500-7000); Neutrophils Percent Auto 81.6 % (50-75); Platelet Count 75 X10^3/uL (150-400); Red Blood Cell Count 4.47 X10^6/uL (4.5-5.9); Red Cell Distribution Width 13.6 % (11.6-14.8); White Blood Cell Count 9.4 X10^3/uL (4.5-11.0)
[2025-01-17 09:32] LABS: Alanine Aminotransferase 150 IU/L (<50); Albumin 3.5 g/dL (3.5-5.0); Albumin Globulin Ratio 1.3 (1.0-2.8); Alkaline Phosphatase 52 U/L (38-126); Aspartate Aminotransferase 210 IU/L (17-59); BUN Creatinine Ratio 11.5 (6-22); Bilirubin Total 1.4 mg/dL (0.2-1.3); Blood Urea Nitrogen 9 mg/dL (9-20); Carbon Dioxide 23 mmol/L (22-32); Chloride 102 mmol/L (98-107); Estimated Glomerular Filt Rate > 60 mL/min (>60); Globulin 2.7 g/dL (1.7-4.1); Glucose 83 mg/dL (70-99); HEMOLYSIS < 15 (0-50); Magnesium 1.6 mg/dL (1.6-2.3); Potassium 3.4 mmol/L (3.4-5.1); Sodium 133 mmol/L (137-145); Total Protein 6.2 g/dL (6.3-8.2)
[2025-01-17 09:34] LABS: Lipase 812 U/L (23-300)
--- NOTE | 2025-01-17 16:27 | P.PN_ITS ---
Subjective Subjective Date Patient Seen: 01/17/25 Interval history: Chief complaint: Alcohol withdrawal and abdominal pain with pancreatitis History of present illness: 01/15: 39 year old male with remote heroin use, EtOH use presented with epigastric abdominal pain starting at 2am this morning. This was sharp, non- radiating pain. Not associated with fever or chills. He has no melena, BRBPR, or hematemesis. He actually denies much nausea or vomiting. He has never had anything like this before. For the past 5 months he has been drinking 1/2 of a fifth of Vodka per day. He has not previously had withdrawals but has never tried to stop drinking. In the ER lipase was >9000. Given fairly minimal pancreatitis symptoms, asked ER to trial diet and pain control for possible outpatient treatment. However shortly after this patient started to withdrawal, with EtOH level of 174. Received 2x 260 mg doses of phenobarb. Patient subsequently started on librium and precedex and admitted to the ICU for treatment of alcohol withdrawal. 39 M with probable alcoholic pancreatitis. CT shows pancreatitis without concern for necrosis. No biliary dilatation. Labs show no sign of infection. Vitals are unremarkable. Patient can trial liquids and oral pain medications. If no tolerance of diet or pain not controled with oral opiates, can admit for fluid hydration and pain control. Hospital course: 01/16: Escalating agitation as the day progressed phenobarbital scheduled added to is IV benzodiazepines scheduled Librium and Precedex Having epigastric pain after yellow or clear liquids 01/17: Agitation is much better after additional phenobarbital to Precedex and Valium and Librium. Patient is still a bit tremulous but does appear a little bit more focused and a little bit more animated lipase is de-escalated from overnight 1002 just over 800, however total bilirubin has escalated to 1.4 from 0.8 Review of systems: No chest pains or shortness a breath No paresthesia paresis No urinary symptom Physical exam: Somewhat tremulous but less flushed faced and still uncomfortable appearing young male HEENT much less swollen facial features Heart rate and rhythm regular hyperdynamic Lungs clear Abdomen nondistended Epigastric tenderness Extremities no edema Assessment and plan: 1. Alcohol withdrawal * - admitted to ICU, on scheduled librium 50 TID * - CIWA with PO ativan and IV valium due to drug shortages * - also on precedex infusion for symptom control * - last drink was approx 10 am on 01/15. EtOH level 174 on admit. * -is on scheduled phenobarbital 65 mg IV q.6 hours and as needed phenobarbital 260 mg IV for agitation/withdrawal 2. Alcoholic pancreatitis * - continue pain control and IV fluids * - mild pain currently, can try on clear liquids and advance diet as tolerated * - if worsening pain with liquids move to NPO status. 3. Alcoholic hepatitis * - mildly elevated AST/ALT at 301/227 respectively. Tbili 0.8. Escalated to 1.4 we will continue to watch * - will check coags tomorrow to calculate discriminant function, if there is worsening and bilirubin may have to consider steroids would rather not do this given his level of agitation from his withdrawal Code: Full, surrogate is patient's spouse DVT: Lovenox daily Dispo: patient admitted under inpatient status to the ICU. Likely discharge home in 2-4 days. Time-Based Coding :: 35 minutes spent with patient and on the chart (including review of chart, obtaining history, exam, reviewing outside data, placing orders, documenting exam and treatment plan, and counseling patient) Exam Vital Signs (past 8 hours): - 01/17/25 08:30 01/17/25 08:30 01/17/25 09:00 Temperature Pulse Rate 79 80 Respiratory Rate 26 H 25 H Blood Pressure Pulse Oximetry 95 97 Oxygen Delivery Method Room Air 01/17/25 09:30 01/17/25 09:32 01/17/25 09:32 Temperature Pulse Rate 85 85 Respiratory Rate 27 H 24 Blood Pressure 143/94 H Pulse Oximetry 95 94 Oxygen Delivery Method 01/17/25 10:00 01/17/25 10:01 01/17/25 10:01 Temperature Pulse Rate 83 82 Respiratory Rate 25 H 25 H Blood Pressure 99/75 Pulse Oximetry 94 94 Oxygen Delivery Method 01/17/25 10:30 01/17/25 11:00 01/17/25 11:00 Temperature Pulse Rate 82 78 Respiratory Rate 23 19 Blood Pressure 94/55 L Pulse Oximetry 95 92 Oxygen Delivery Method 01/17/25 11:30 01/17/25 12:00 01/17/25 12:00 Temperature 100.8 F H Pulse Rate 76 Respiratory Rate 21 Blood Pressure Pulse Oximetry 94 Oxygen Delivery Method Room Air 01/17/25 12:00 01/17/25 12:00 01/17/25 12:30 Temperature 100.8 F H Pulse Rate 82 92 H Respiratory Rate 23 25 H Blood Pressure 109/70 Pulse Oximetry 95 94 Oxygen Delivery Method 01/17/25 13:00 01/17/25 13:00 01/17/25 13:30 Temperature Pulse Rate 91 H 85 Respiratory Rate 22 27 H Blood Pressure 121/80 Pulse Oximetry 95 94 Oxygen Delivery Method 01/17/25 14:00 01/17/25 14:02 01/17/25 14:04 Temperature 99.3 F Pulse Rate 95 H Respiratory Rate Blood Pressure 137/81 Pulse Oximetry 99 Oxygen Delivery Method 01/17/25 14:04 01/17/25 14:30 01/17/25 15:00 Temperature Pulse Rate 92 H 97 H Respiratory Rate 22 27 H Blood Pressure 137/88 Pulse Oximetry 96 95 Oxygen Delivery Method 01/17/25 15:00 Temperature Pulse Rate 94 H Respiratory Rate 24 Blood Pressure Pulse Oximetry 95 Oxygen Delivery Method Oxygen Delivery Method Room Air Oxygen Flow Rate 0 Objective Labs 01/17/25 08:13 01/17/25 08:13 Labs: Laboratory Results - last 24 hr 01/17/25 01/17/25 01/17/25 08:13 08:13 08:13 WBC 9.4 RBC 4.47 L Hgb 14.7 Hct 42.4 MCV 94.9 MCH 32.9 MCHC 34.6 RDW 13.6 Plt Count 75 L Neut % (Auto) 81.6 H Lymph % (Auto) 6.6 L [place] % (Auto) 9.7 Eos % (Auto) 1.7 L Baso % (Auto) 0.4 Neut # (Auto) 7700 H Lymph # (Auto) 600 L [place] # (Auto) 900 Eos # (Auto) 200 Baso # (Auto) 0 Sodium 133 L Cancelled Potassium 3.4 Cancelled Chloride 102 Carbon Dioxide BUN Creatinine Estimated GFR BUN/Creatinine Ratio Glucose Calcium Magnesium Total Bilirubin AST ALT Alkaline Phosphatase Total Protein Albumin Globulin Albumin/Globulin Ratio Lipase 01/17/25 01/17/25 01/17/25 08:13 08:13 08:13 WBC RBC Hgb Hct MCV MCH MCHC RDW Plt Count Neut % (Auto) Lymph % (Auto) [place] % (Auto) Eos % (Auto) Baso % (Auto) Neut # (Auto) Lymph # (Auto) [place] # (Auto) Eos # (Auto) Baso # (Auto) Sodium Potassium Chloride Cancelled Carbon Dioxide 23 Cancelled BUN 9 Cancelled Creatinine 0.78 Estimated GFR BUN/Creatinine Ratio Glucose Calcium Magnesium Total Bilirubin AST ALT Alkaline Phosphatase Total Protein Albumin Globulin Albumin/Globulin Ratio Lipase 01/17/25 01/17/25 01/17/25 08:13 08:13 08:13 WBC RBC Hgb Hct MCV MCH MCHC RDW Plt Count Neut % (Auto) Lymph % (Auto) [place] % (Auto) Eos % (Auto) Baso % (Auto) Neut # (Auto) Lymph # (Auto) [place] # (Auto) Eos # (Auto) Baso # (Auto) Sodium Potassium Chloride Carbon Dioxide BUN Creatinine Cancelled Estimated GFR > 60 Cancelled BUN/Creatinine Ratio 11.5 Cancelled Glucose 83 Calcium Magnesium Total Bilirubin AST ALT Alkaline Phosphatase Total Protein Albumin Globulin Albumin/Globulin Ratio Lipase 01/17/25 01/17/25 01/17/25 08:13 08:13 08:13 WBC RBC Hgb Hct MCV MCH MCHC RDW Plt Count Neut % (Auto) Lymph % (Auto) [place] % (Auto) Eos % (Auto) Baso % (Auto) Neut # (Auto) Lymph # (Auto) [place] # (Auto) Eos # (Auto) Baso # (Auto) Sodium Potassium Chloride Carbon Dioxide BUN Creatinine Estimated GFR BUN/Creatinine Ratio Glucose Cancelled Calcium 8.0 L Cancelled Magnesium 1.6 Total Bilirubin 1.4 H Cancelled AST 210 H ALT Alkaline Phosphatase Total Protein Albumin Globulin Albumin/Globulin Ratio Lipase 01/17/25 01/17/25 01/17/25 08:13 08:13 08:13 WBC RBC Hgb Hct MCV MCH MCHC RDW Plt Count Neut % (Auto) Lymph % (Auto) [place] % (Auto) Eos % (Auto) Baso % (Auto) Neut # (Auto) Lymph # (Auto) [place] # (Auto) Eos # (Auto) Baso # (Auto) Sodium Potassium Chloride Carbon Dioxide BUN Creatinine Estimated GFR BUN/Creatinine Ratio Glucose Calcium Magnesium Total Bilirubin AST Cancelled ALT 150 H Cancelled Alkaline Phosphatase 52 Cancelled Total Protein 6.2 L Albumin Globulin Albumin/Globulin Ratio Lipase 01/17/25 01/17/25 01/17/25 08:13 08:13 08:13 WBC RBC Hgb Hct MCV MCH MCHC RDW Plt Count Neut % (Auto) Lymph % (Auto) [place] % (Auto) Eos % (Auto) Baso % (Auto) Neut # (Auto) Lymph # (Auto) [place] # (Auto) Eos # (Auto) Baso # (Auto) Sodium Potassium Chloride Carbon Dioxide BUN Creatinine Estimated GFR BUN/Creatinine Ratio Glucose Calcium Magnesium Total Bilirubin AST ALT Alkaline Phosphatase Total Protein Cancelled Albumin 3.5 Cancelled Globulin 2.7 Cancelled Albumin/Globulin Ratio 1.3 Lipase 01/17/25 08:13 WBC RBC Hgb Hct MCV MCH MCHC RDW Plt Count Neut % (Auto) Lymph % (Auto) [place] % (Auto) Eos % (Auto) Baso % (Auto) Neut # (Auto) Lymph # (Auto) [place] # (Auto) Eos # (Auto) Baso # (Auto) Sodium Potassium Chloride Carbon Dioxide BUN Creatinine Estimated GFR BUN/Creatinine Ratio Glucose Calcium Magnesium Total Bilirubin AST ALT Alkaline Phosphatase Total Protein Albumin Globulin Albumin/Globulin Ratio Cancelled Lipase 812 H D [facility] Social History household members: spouse and children alcohol intake: current Assessment & Plan Time-Based Coding :: [TOTAL MINUTES] spent with patient and on the chart (including review of chart, obtaining history, exam, reviewing outside data, placing orders, documenting exam and treatment plan, and counseling patient) on [DATE]. Quality VTE Deep Vein Thrombosis/Pulmonary Embolism Present on Admission: No
[2025-01-17] MEDS: LORazepam 1 MG TABLET PO (16:54)
--- NOTE | 2025-01-17 17:41 | INF.NOTE ---
Addendum entered by Pedro Luis Davis R.N. 01/17/25 18:52: 1830 DR VENEGAS ROUNDED ON PT. REQUESTING PT RECEIVE 260 MG PHENOBARBITAL IV BOLUS AND PRECEDEX GET RESTARTED FOR TACHYCARDIA/ AGITATION. Original Note: PATIENT A/OX4. PRECEDEX TURNED OFF AT 1040. PATIENT CALM/ COOPERATIVE THROUGHOUT SHIFT. ANXIOUS AROUND 1600. SEE WORKLIST/ EMAR. IV FLUIDS CONTINUED. UP TO RESTROOM WITH WALKER/ NURSES ASSISTANCE DURING SHIFT. TOLERATING CLEAR LIQUIDS. MD STATES OK TO ORDER LOW FAT DIET FOR PATIENT.
[2025-01-17] MEDS: PHENobarbital 65 MG/ML VIAL 260 MG IV (18:40)
--- NOTE | 2025-01-17 20:23 | DI.CT.S_ITS ---
PROCEDURE: CT HEAD/BRAIN WO CON INDICATIONS: unwitnessed fall, rule out head injury TECHNIQUE: Noncontrast 4.5 mm thick angled axial sections acquired from the foramen magnum to the vertex, with coronal and sagittal reformats. For radiation dose reduction, the following was used: automated exposure control, adjustment of mA and/or kV according to patient size. COMPARISON: None. FINDINGS: Image quality: Diagnostic. CSF spaces: Basal cisterns are patent. No extra-axial fluid collections. Ventricles are normal in size and shape. Brain: No midline shift. No intracranial mass effect or hemorrhage. Kan- white matter interface is normal. Skull and face: Calvarium and visualized facial bones are intact, without suspicious lesions. Sinuses: Right maxillary retention cyst IMPRESSION: No acute intracranial pathology. Approved by: Arian Hammonds M.D. on 01/17/2025 at 20:19
[2025-01-17] MEDS: diazePAM 10 MG/2 ML SYRINGE IV (21:57)
[2025-01-18] VITALS (55 sets, daily range): BP systolic 104–155; BP diastolic 63–101; PULSE 66–94; RESP 15–40; TEMP 36.6–37.2; O2SAT 79–100
[2025-01-18] MEDS: PHENobarbital 65 MG/ML VIAL IV ×4 (00:30→17:16)
[2025-01-18] MEDS: dexmedeTOMIDine in 0.9 % NaCL 400 MCG/100 ML PLAST..BAG 8.618 MCG IV (02:52)
[2025-01-18] MEDS: SODIUM CHLORIDE 0.9% 1,000 ML 100 ML IV ×3 (02:55→22:57)
--- NOTE | 2025-01-18 07:32 | PC.NURSE ---
nightclub manager RN note assumed care at 1900, pt anxious, tremorous, insiting on getting out of bed to use urinal, some incont, pt cleaned up/linens changes and assisted back to bed after brushing his teeth at sink with standby assist, RN went to get brief for his incont, upon return to room pt standing again at bedside tangled in lines reaching for something at sink, pt lost balance and reached for wall, RN assisted down to floor on his bottom, no LOC, denies hitting his head, no bruises noted, x2 IV sites pulled out, pt assisted back to bed, VS taken, slightly hypertensive, coordinator notifed, IV restarted, precedex titrated per protocol, MD notified and order for CT head, pt taked down on bed with monitor, results given to MD, significant other updated on pt's condition. pt continued to be more restless and aggitated, hallucinating ferrets and siblings in the room, sweating, sensitive to light, bilat arm tremors, sched meds and prn CIWA meds given with effect, bed alarm maintained, call browne within reach, frequent monitoring, VSS, SR 60-90s, lungs clear, brief on, incont of urine, pericare and new briefs applied, ongoing care
[2025-01-18] MEDS: FOLIC ACID 1 MG TABLET PO (08:08)
[2025-01-18] MEDS: chlordiazePOXIDE 25 MG CAPSULE 50 MG PO ×3 (08:08→20:33)
[2025-01-18] MEDS: MULTIVITAMIN 1 TABLET 1 TAB PO (08:08)
[2025-01-18] MEDS: NICOTINE 14 PATCH 14 MG TOP (08:08)
[2025-01-18] MEDS: SODIUM CHLORIDE 0.9% FLUSH 10 ML IV ×2 (08:09→20:33)
[2025-01-18] MEDS: LORazepam 1 MG TABLET PO ×2 (08:13→20:32)
[2025-01-18 08:43] LABS: Add Manual Diff / Slide Review NO; Basophils Absolute Auto 0 /uL (0-100); Basophils Percent Auto 0.2 % (0-2); Eosinophils Absolute Auto 200 /uL (0-450); Eosinophils Percent Auto 2.4 % (2-4); Hematocrit 39.9 % (41-53); Hemoglobin 13.9 g/dL (13.5-17.5); Lymphocytes Absolute Auto 600 /uL (1100-4500); Lymphocytes Percent Auto 7.2 % (25-40); Mean Corpuscular HGB Conc 34.9 % (30-36); Mean Corpuscular Hemoglobin 33.1 PG (26-34); Mean Corpuscular Volume 94.8 fL (80-100); Monocytes Absolute Auto 900 /uL (0-900); Monocytes Percent Auto 11.3 % (3-14); Neutrophils Absolute Auto 6200 /uL (1500-7000); Neutrophils Percent Auto 78.9 % (50-75); Platelet Count 97 X10^3/uL (150-400); Red Blood Cell Count 4.21 X10^6/uL (4.5-5.9); Red Cell Distribution Width 13.7 % (11.6-14.8); White Blood Cell Count 7.9 X10^3/uL (4.5-11.0)
[2025-01-18 09:01] LABS: Lipase 474 U/L (23-300)
[2025-01-18 09:02] LABS: Alanine Aminotransferase 112 IU/L (<50); Albumin 3.5 g/dL (3.5-5.0); Albumin Globulin Ratio 1.3 (1.0-2.8); Alkaline Phosphatase 57 U/L (38-126); Aspartate Aminotransferase 101 IU/L (17-59); BUN Creatinine Ratio 13.2 (6-22); Bilirubin Total 1.2 mg/dL (0.2-1.3); Blood Urea Nitrogen 10 mg/dL (9-20); Calcium 7.8 mg/dL (8.4-10.2); Carbon Dioxide 19 mmol/L (22-32); Chloride 106 mmol/L (98-107); Estimated Glomerular Filt Rate > 60 mL/min (>60); Globulin 2.7 g/dL (1.7-4.1); Glucose 180 mg/dL (70-99); HEMOLYSIS < 15 (0-50); Magnesium 1.8 mg/dL (1.6-2.3); Potassium 3.4 mmol/L (3.4-5.1); Sodium 135 mmol/L (137-145); Total Protein 6.2 g/dL (6.3-8.2)
--- NOTE | 2025-01-18 10:58 | P.PN_ITS ---
Subjective Subjective Date Patient Seen: 01/18/25 Interval history: Chief complaint: Alcohol withdrawal and abdominal pain with pancreatitis History of present illness: 01/15: 39 year old male with remote heroin use, EtOH use presented with epigastric abdominal pain starting at 2am this morning. This was sharp, non- radiating pain. Not associated with fever or chills. He has no melena, BRBPR, or hematemesis. He actually denies much nausea or vomiting. He has never had anything like this before. For the past 5 months he has been drinking 1/2 of a fifth of Vodka per day. He has not previously had withdrawals but has never tried to stop drinking. In the ER lipase was >9000. Given fairly minimal pancreatitis symptoms, asked ER to trial diet and pain control for possible outpatient treatment. However shortly after this patient started to withdrawal, with EtOH level of 174. Received 2x 260 mg doses of phenobarb. Patient subsequently started on librium and precedex and admitted to the ICU for treatment of alcohol withdrawal. 39 M with probable alcoholic pancreatitis. CT shows pancreatitis without concern for necrosis. No biliary dilatation. Labs show no sign of infection. Vitals are unremarkable. Patient can trial liquids and oral pain medications. If no tolerance of diet or pain not controled with oral opiates, can admit for fluid hydration and pain control. Hospital course: 01/16: Escalating agitation as the day progressed phenobarbital scheduled added to is IV benzodiazepines scheduled Librium and Precedex Having epigastric pain after yellow or clear liquids 01/17: Agitation is much better after additional phenobarbital to Precedex and Valium and Librium. Patient is still a bit tremulous but does appear a little bit more focused and a little bit more animated lipase is de-escalated from overnight 1002 just over 800, however total bilirubin has escalated to 1.4 from 0.8 01/18: Agitation tachycardia and tremors escalated yesterday with active hallucinosis seeing sammi patient was restarted on Precedex and given boluses of phenobarbital 260 mg intravenously as well as the scheduled 65 IV q.6 hours maintenance Librium 50 t.i.d. and as needed lorazepam and diazepam. Unfortunately the alcohol withdrawal and delirium tremens which this is now, may continued to escalate and if so may require intubation and propofol infusion Review of systems: No chest pains or shortness a breath No paresthesia paresis No urinary symptom Physical exam: Somewhat tremulous but less flushed faced and still uncomfortable appearing young male HEENT much less swollen facial features Heart rate and rhythm regular hyperdynamic Lungs clear Abdomen nondistended Epigastric tenderness Extremities no edema Assessment and plan: 1. Alcohol withdrawal with hyperactive delirium tremens and escalation despite aggressive treatment with phenobarbital benzodiazepines and Precedex * Continue maintenance scheduled Librium, phenobarbital, Precedex * As needed IV Valium p.o. lorazepam and phenobarbital 260 mg intravenous every 2 hours * May escalate further requiring intubation and propofol infusion 2. Alcoholic pancreatitis * - continue pain control and IV fluids * - mild pain currently, can try on clear liquids and advance diet as tolerated * - if worsening pain with liquids move to NPO status. 3. Alcoholic hepatitis * - mildly elevated AST/ALT at 301/227 respectively. Tbili 0.8. Escalated to 1.4 we will continue to watch * - will check coags tomorrow to calculate discriminant function, if there is worsening and bilirubin may have to consider steroids would rather not do this given his level of agitation from his withdrawal Code: Full, surrogate is patient's spouse DVT: Lovenox daily Dispo: patient admitted under inpatient status to the ICU. Length of stay indeterminate as patient may be escalating in his delirium tremens Time-Based Coding :: 35 minutes spent with patient and on the chart (including review of chart, obtaining history, exam, reviewing outside data, placing orders, documenting exam and treatment plan, and counseling patient) Exam Vital Signs (past 8 hours): - 01/18/25 03:00 01/18/25 03:00 01/18/25 03:30 Temperature 97.8 F Pulse Rate 68 68 Respiratory Rate 18 18 Blood Pressure 111/71 Pulse Oximetry 100 98 Oxygen Delivery Method Oxygen Flow Rate 0 01/18/25 04:00 01/18/25 04:00 01/18/25 04:00 Temperature Pulse Rate 68 Respiratory Rate 17 Blood Pressure 112/74 Pulse Oximetry 100 Oxygen Delivery Method Room Air Oxygen Flow Rate 01/18/25 04:30 01/18/25 05:00 01/18/25 05:00 Temperature Pulse Rate 68 70 Respiratory Rate 19 20 Blood Pressure 108/72 Pulse Oximetry 97 96 Oxygen Delivery Method Oxygen Flow Rate 01/18/25 05:30 01/18/25 06:00 01/18/25 06:00 Temperature Pulse Rate 69 69 Respiratory Rate 18 18 Blood Pressure 115/67 Pulse Oximetry 97 97 Oxygen Delivery Method Oxygen Flow Rate 01/18/25 06:30 01/18/25 07:00 01/18/25 07:00 Temperature Pulse Rate 66 71 Respiratory Rate 19 Blood Pressure 120/88 Pulse Oximetry 97 98 Oxygen Delivery Method Oxygen Flow Rate 01/18/25 07:30 01/18/25 08:00 01/18/25 08:01 Temperature Pulse Rate 74 81 Respiratory Rate 25 H 31 H Blood Pressure 132/65 Pulse Oximetry 96 95 Oxygen Delivery Method Oxygen Flow Rate 01/18/25 08:01 01/18/25 08:33 01/18/25 09:00 Temperature Pulse Rate 76 82 Respiratory Rate 31 H 25 H Blood Pressure 111/68 Pulse Oximetry 99 96 Oxygen Delivery Method Oxygen Flow Rate 01/18/25 09:00 01/18/25 09:30 01/18/25 10:00 Temperature Pulse Rate 71 71 Respiratory Rate 23 19 Blood Pressure 108/63 Pulse Oximetry 97 95 Oxygen Delivery Method Oxygen Flow Rate 01/18/25 10:00 Temperature Pulse Rate 69 Respiratory Rate 18 Blood Pressure Pulse Oximetry 95 Oxygen Delivery Method Oxygen Flow Rate Oxygen Delivery Method Room Air Oxygen Flow Rate 0 Objective Labs 01/18/25 08:36 01/18/25 08:36 Labs: Laboratory Results - last 24 hr 01/18/25 08:36 WBC 7.9 RBC 4.21 L Hgb 13.9 Hct 39.9 L MCV 94.8 MCH 33.1 MCHC 34.9 RDW 13.7 Plt Count 97 L Neut % (Auto) 78.9 H Lymph % (Auto) 7.2 L [place] % (Auto) 11.3 Eos % (Auto) 2.4 Baso % (Auto) 0.2 Neut # (Auto) 6200 Lymph # (Auto) 600 L [place] # (Auto) 900 Eos # (Auto) 200 Baso # (Auto) 0 Sodium 135 L Potassium 3.4 Chloride 106 Carbon Dioxide 19 L BUN 10 Creatinine 0.76 Estimated GFR > 60 BUN/Creatinine Ratio 13.2 Glucose 180 H Calcium 7.8 L Magnesium 1.8 Total Bilirubin 1.2 AST 101 H ALT 112 H Alkaline Phosphatase 57 Total Protein 6.2 L Albumin 3.5 Globulin 2.7 Albumin/Globulin Ratio 1.3 Lipase 474 H PFSH Social History household members: spouse and children alcohol intake: current Assessment & Plan Time-Based Coding :: [TOTAL MINUTES] spent with patient and on the chart (including review of chart, obtaining history, exam, reviewing outside data, placing orders, documenting exam and treatment plan, and counseling patient) on [DATE]. Quality VTE Deep Vein Thrombosis/Pulmonary Embolism Present on Admission: No
--- NOTE | 2025-01-18 16:07 | CM.DPC ---
DCP SAUL resources Per MD, pt still with visual hallucinations/disturbances and in active withdrawal and not yet medically cleared and anticipates another couple to few days and states pt may be at risk of intubation if his airways compromised. Spouse Destini bedside and requesting resources and options and SW met with spouse and pt and supportive friend. Pt able to participate but confirms he is still seeing sparkles and spots on the orozco and somewhat groggy. Discussed likely need for ongoing discharge planning discussions with pt as he becomes more cognitively cleared and through some of his withdrawals. Provided them with the list of Inpt SAUL tx facilities and Intensive Outpt SAUL options with printed information on [facility] to review. Strongly encouraged spouse to seek her own support as well. Pt states he currently does not want Inpt SAUL tx as he doesn't want to leave home and discussed that an SAUL assessment could help them determine Inpt vs Outpt tx based on their recommendations. Discussed challenges to getting into Inpt SAUL from the hospital and not a guarantee but could be attempted if pt willing to do Inpt tx. Pt and spouse appreciative and encouraged them to have roman discussion regarding steps after discharge as they have a 4 week old dtr etc... Plan: SW to follow up with pt and spouse tomorrow if pt more cognitively clear and able to have further goal directed discussion on ETOH tx after discharge. CRISTOPHER Merchant
[2025-01-18] MEDS: dexmedeTOMIDine in 0.9 % NaCL 400 MCG/100 ML PLAST..BAG 6.464 MCG IV (17:16)
[2025-01-18] MEDS: OXYCODONE IR 5 MG TABLET 10 MG PO (20:36)
[2025-01-18] MEDS: diazePAM 10 MG/2 ML SYRINGE IV (22:57)
[2025-01-19] VITALS (58 sets, daily range): BP systolic 114–187; BP diastolic 72–121; PULSE 64–84; RESP 14–35; TEMP 36.2–37.1; O2SAT 87–98
[2025-01-19] MEDS: PHENobarbital 65 MG/ML VIAL IV ×4 (00:25→17:10)
[2025-01-19] MEDS: diazePAM 10 MG/2 ML SYRINGE IV (00:42)
[2025-01-19] MEDS: dexmedeTOMIDine in 0.9 % NaCL 400 MCG/100 ML PLAST..BAG 10.773 MCG IV (04:03)
--- NOTE | 2025-01-19 06:49 | PC.NURSE ---
night cleaner RN note pt anxious/restless and aggitated, CIWA initially 8-12, occasionally using call browne appropriately, then gradually more impulsive trying to get up out of bed, hallucinating that his and baby were at bedside and worms on the floor, frequently calling family and friends, updated on pt's condition and she requested that his calls be slowed down so that she can rest stating she is feeling burnt out, RN discussed this with pt, he stated he understood but then would forget about conversation and attempt to call her again, unsteady ambulation to bathroom for a loose BM x1 assist and walker, brief on for intermittent incont, CIWA protocol with meds as needed, bed alarm on, frequent monitoring and redirecting, care on going
[2025-01-19] MEDS: NICOTINE 14 PATCH 14 MG TOP (08:09)
[2025-01-19] MEDS: FOLIC ACID 1 MG TABLET PO (08:10)
[2025-01-19] MEDS: chlordiazePOXIDE 25 MG CAPSULE 50 MG PO ×3 (08:10→20:17)
[2025-01-19] MEDS: LORazepam 1 MG TABLET PO ×3 (08:10→22:07)
[2025-01-19] MEDS: MULTIVITAMIN 1 TABLET 1 TAB PO (08:10)
[2025-01-19] MEDS: SODIUM CHLORIDE 0.9% 1,000 ML 100 ML IV ×2 (08:11→17:11)
[2025-01-19] MEDS: SODIUM CHLORIDE 0.9% FLUSH 10 ML IV (08:35)
[2025-01-19 09:09] LABS: Alanine Aminotransferase 95 IU/L (<50); Albumin 3.4 g/dL (3.5-5.0); Albumin Globulin Ratio 1.3 (1.0-2.8); Alkaline Phosphatase 51 U/L (38-126); Aspartate Aminotransferase 81 IU/L (17-59); BUN Creatinine Ratio 8.7 (6-22); Bilirubin Total 0.9 mg/dL (0.2-1.3); Blood Urea Nitrogen 6 mg/dL (9-20); Carbon Dioxide 24 mmol/L (22-32); Chloride 107 mmol/L (98-107); Estimated Glomerular Filt Rate > 60 mL/min (>60); Globulin 2.7 g/dL (1.7-4.1); Glucose 93 mg/dL (70-99); HEMOLYSIS < 15 (0-50); Lipase 404 U/L (23-300); Potassium 3.4 mmol/L (3.4-5.1); Sodium 139 mmol/L (137-145); Total Protein 6.1 g/dL (6.3-8.2)
[2025-01-19] MEDS: POTASSIUM CHLORIDE 20 MEQ TAB 40 MEQ PO (11:21)
[2025-01-19] MEDS: dexmedeTOMIDine in 0.9 % NaCL 400 MCG/100 ML PLAST..BAG 6.464 MCG IV (14:41)
--- NOTE | 2025-01-19 15:53 | CM.DPC ---
DCP Cont: Per MD and RN, pt continues to be in active withdrawal and on preccedex and having hallucinations still today and not yet medically cleared. Provided pt and spouse outpt and Inpt ETOH resources yesterday and will follow up with them when pt more medically appropriate to participate in further discharge planning discussion. Radha Vásquez MSW
--- NOTE | 2025-01-19 16:37 | P.PN_ITS ---
Subjective Subjective Date Patient Seen: 01/19/25 Interval history: Chief complaint: Alcohol withdrawal and abdominal pain with pancreatitis History of present illness: 01/15: 39 year old male with remote heroin use, EtOH use presented with epigastric abdominal pain starting at 2am this morning. This was sharp, non- radiating pain. Not associated with fever or chills. He has no melena, BRBPR, or hematemesis. He actually denies much nausea or vomiting. He has never had anything like this before. For the past 5 months he has been drinking 1/2 of a fifth of Vodka per day. He has not previously had withdrawals but has never tried to stop drinking. In the ER lipase was >9000. Given fairly minimal pancreatitis symptoms, asked ER to trial diet and pain control for possible outpatient treatment. However shortly after this patient started to withdrawal, with EtOH level of 174. Received 2x 260 mg doses of phenobarb. Patient subsequently started on librium and precedex and admitted to the ICU for treatment of alcohol withdrawal. 39 M with probable alcoholic pancreatitis. CT shows pancreatitis without concern for necrosis. No biliary dilatation. Labs show no sign of infection. Vitals are unremarkable. Patient can trial liquids and oral pain medications. If no tolerance of diet or pain not controled with oral opiates, can admit for fluid hydration and pain control. Hospital course: 01/16: Escalating agitation as the day progressed phenobarbital scheduled added to is IV benzodiazepines scheduled Librium and Precedex Having epigastric pain after yellow or clear liquids 01/17: Agitation is much better after additional phenobarbital to Precedex and Valium and Librium. Patient is still a bit tremulous but does appear a little bit more focused and a little bit more animated lipase is de-escalated from overnight 1002 just over 800, however total bilirubin has escalated to 1.4 from 0.8 01/18: Agitation tachycardia and tremors escalated yesterday with active hallucinosis seeing sammi patient was restarted on Precedex and given boluses of phenobarbital 260 mg intravenously as well as the scheduled 65 IV q.6 hours maintenance Librium 50 t.i.d. and as needed lorazepam and diazepam. Unfortunately the alcohol withdrawal and delirium tremens which this is now, may continued to escalate and if so may require intubation and propofol infusion 01/19: Patient remains on Precedex scheduled phenobarbital and scheduled benzodiazepine with symptom driven as needed doses of benzodiazepines and phenobarbital is sleeping rousable and is feeding himself but still in delirium Review of systems: Unable to participate in review of systems Physical exam: Confused tremulous hallucinating HEENT much less swollen facial features Heart rate and rhythm regular hyperdynamic Lungs clear Abdomen nondistended Epigastric tenderness Extremities no edema Assessment and plan: 1. Alcohol withdrawal with hyperactive delirium tremens and escalation despite aggressive treatment with phenobarbital benzodiazepines and Precedex * Continue maintenance scheduled Librium, phenobarbital, Precedex * As needed IV Valium p.o. lorazepam and phenobarbital 260 mg intravenous every 2 hours * May escalate further requiring intubation and propofol infusion 2. Alcoholic pancreatitis * - continue pain control and IV fluids * - mild pain currently, can try on clear liquids and advance diet as tolerated * - if worsening pain with liquids move to NPO status. 3. Alcoholic hepatitis * - mildly elevated AST/ALT at 301/227 respectively. Tbili 0.8. Escalated to 1.4 we will continue to watch * - will check coags tomorrow to calculate discriminant function, if there is worsening and bilirubin may have to consider steroids would rather not do this given his level of agitation from his withdrawal Code: Full, surrogate is patient's spouse DVT: Lovenox daily Dispo: patient admitted under inpatient status to the ICU. Length of stay indeterminate as patient may be escalating in his delirium tremens Time-Based Coding :: 35 minutes spent with patient and on the chart (including review of chart, obtaining history, exam, reviewing outside data, placing orders, documenting exam and treatment plan, and counseling patient) Exam Vital Signs (past 8 hours): - 01/19/25 09:00 01/19/25 09:03 01/19/25 09:03 Pulse Rate 73 75 Respiratory Rate 28 H 28 H Blood Pressure 119/79 119/79 Pulse Oximetry 98 97 Oxygen Delivery Method 01/19/25 09:09 01/19/25 09:30 01/19/25 10:00 Pulse Rate 72 67 68 Respiratory Rate 32 H 18 19 Blood Pressure 119/79 Pulse Oximetry 95 94 Oxygen Delivery Method 01/19/25 10:00 01/19/25 10:30 01/19/25 11:09 Pulse Rate 68 71 Respiratory Rate 18 29 H Blood Pressure 126/87 Pulse Oximetry 94 98 Oxygen Delivery Method 01/19/25 11:11 01/19/25 11:11 01/19/25 11:30 Pulse Rate 64 67 Respiratory Rate 23 17 Blood Pressure 148/88 H Pulse Oximetry 97 96 Oxygen Delivery Method 01/19/25 12:00 01/19/25 12:00 01/19/25 12:00 Pulse Rate 67 Respiratory Rate 17 Blood Pressure 137/90 Pulse Oximetry 95 Oxygen Delivery Method Room Air 01/19/25 12:30 01/19/25 13:00 01/19/25 13:00 Pulse Rate 65 65 Respiratory Rate 17 16 Blood Pressure 138/91 H Pulse Oximetry 95 95 Oxygen Delivery Method 01/19/25 13:30 01/19/25 14:00 01/19/25 14:00 Pulse Rate 66 65 Respiratory Rate 17 17 Blood Pressure 141/89 H Pulse Oximetry 95 96 Oxygen Delivery Method 01/19/25 14:30 01/19/25 15:00 01/19/25 15:00 Pulse Rate 75 71 Respiratory Rate 26 H 21 Blood Pressure 146/88 H Pulse Oximetry 96 98 Oxygen Delivery Method 01/19/25 16:00 01/19/25 16:12 Pulse Rate 79 Respiratory Rate 30 H Blood Pressure Pulse Oximetry Oxygen Delivery Method Room Air Oxygen Delivery Method Room Air Oxygen Flow Rate 0 Objective Labs 01/18/25 08:36 01/19/25 08:21 Labs: Laboratory Results - last 24 hr 01/19/25 08:21 Sodium 139 Potassium 3.4 Chloride 107 Carbon Dioxide 24 BUN 6 L Creatinine 0.69 Estimated GFR > 60 BUN/Creatinine Ratio 8.7 Glucose 93 Calcium 8.0 L Total Bilirubin 0.9 AST 81 H ALT 95 H Alkaline Phosphatase 51 Total Protein 6.1 L Albumin 3.4 L Globulin 2.7 Albumin/Globulin Ratio 1.3 Lipase 404 H [facility] Social History household members: spouse and children alcohol intake: current Assessment & Plan Time-Based Coding :: [TOTAL MINUTES] spent with patient and on the chart (including review of chart, obtaining history, exam, reviewing outside data, placing orders, documenting exam and treatment plan, and counseling patient) on [DATE]. Quality VTE Deep Vein Thrombosis/Pulmonary Embolism Present on Admission: No
[2025-01-19] MEDS: OXYCODONE IR 5 MG TABLET 10 MG PO (20:23)
[2025-01-20] VITALS (47 sets, daily range): BP systolic 121–166; BP diastolic 73–115; PULSE 65–97; RESP 14–29; TEMP 36.4–36.7; O2SAT 78–98
[2025-01-20] MEDS: PHENobarbital 65 MG/ML VIAL IV ×3 (00:04→11:54)
[2025-01-20] MEDS: dexmedeTOMIDine in 0.9 % NaCL 400 MCG/100 ML PLAST..BAG 10.773 MCG IV (03:42)
[2025-01-20] MEDS: SODIUM CHLORIDE 0.9% 1,000 ML 100 ML IV (04:39)
[2025-01-20 05:22] LABS: BUN Creatinine Ratio 7.4 (6-22); Blood Urea Nitrogen 5 mg/dL (9-20); Calcium 8.3 mg/dL (8.4-10.2); Carbon Dioxide 21 mmol/L (22-32); Chloride 108 mmol/L (98-107); Estimated Glomerular Filt Rate > 60 mL/min (>60); Glucose 126 mg/dL (70-99); HEMOLYSIS < 15 (0-50); Potassium 3.3 mmol/L (3.4-5.1); Sodium 138 mmol/L (137-145)
[2025-01-20] MEDS: POTASSIUM CHLORIDE 20 MEQ TAB 40 MEQ PO ×2 (08:54→11:55)
[2025-01-20] MEDS: NICOTINE 14 PATCH 14 MG TOP ×2 (08:54→16:21)
[2025-01-20] MEDS: chlordiazePOXIDE 25 MG CAPSULE 50 MG PO (08:54)
[2025-01-20] MEDS: SODIUM CHLORIDE 0.9% FLUSH 10 ML IV ×2 (08:54→20:54)
[2025-01-20] MEDS: THIAMINE 500 MG in SODIUM CHLORIDE 0.9% 100 ML 420 MG IV ×3 (08:54→21:58)
[2025-01-20] MEDS: MULTIVITAMIN 1 TABLET 1 TAB PO (08:54)
[2025-01-20] MEDS: FOLIC ACID 1 MG TABLET PO (08:54)
--- NOTE | 2025-01-20 13:18 | CM.DPC ---
DCP Cont. Reviewed EMR and team rounds for pt's medical status and updates. Per Hospitalist, pt is still withdrawing, still on CIWA protocoal/precedex, thiamine. Pt is also still very encephalopathic, and is actively hallucinating. Per Hospitalist, likely another 2-3 more days before being medically stable for d/c.
--- NOTE | 2025-01-20 14:21 | P.PN_ITS ---
Subjective Subjective Date Patient Seen: 01/20/25 Interval history: Chief complaint: Alcohol withdrawal and abdominal pain with pancreatitis History of present illness: 01/15: 39 year old male with remote heroin use, EtOH use presented with epigastric abdominal pain starting at 2am this morning. This was sharp, non- radiating pain. Not associated with fever or chills. He has no melena, BRBPR, or hematemesis. He actually denies much nausea or vomiting. He has never had anything like this before. For the past 5 months he has been drinking 1/2 of a fifth of Vodka per day. He has not previously had withdrawals but has never tried to stop drinking. In the ER lipase was >9000. Given fairly minimal pancreatitis symptoms, asked ER to trial diet and pain control for possible outpatient treatment. However shortly after this patient started to withdrawal, with EtOH level of 174. Received 2x 260 mg doses of phenobarb. Patient subsequently started on librium and precedex and admitted to the ICU for treatment of alcohol withdrawal. 39 M with probable alcoholic pancreatitis. CT shows pancreatitis without concern for necrosis. No biliary dilatation. Labs show no sign of infection. Vitals are unremarkable. Patient can trial liquids and oral pain medications. If no tolerance of diet or pain not controled with oral opiates, can admit for fluid hydration and pain control. Hospital course: 01/16: Escalating agitation as the day progressed phenobarbital scheduled added to is IV benzodiazepines scheduled Librium and Precedex Having epigastric pain after yellow or clear liquids 01/17: Agitation is much better after additional phenobarbital to Precedex and Valium and Librium. Patient is still a bit tremulous but does appear a little bit more focused and a little bit more animated lipase is de-escalated from overnight 1002 just over 800, however total bilirubin has escalated to 1.4 from 0.8 01/18: Agitation tachycardia and tremors escalated yesterday with active hallucinosis seeing sammi patient was restarted on Precedex and given boluses of phenobarbital 260 mg intravenously as well as the scheduled 65 IV q.6 hours maintenance Librium 50 t.i.d. and as needed lorazepam and diazepam. Unfortunately the alcohol withdrawal and delirium tremens which this is now, may continued to escalate and if so may require intubation and propofol infusion 01/19: Patient remains on Precedex scheduled phenobarbital and scheduled benzodiazepine with symptom driven as needed doses of benzodiazepines and phenobarbital is sleeping rousable and is feeding himself but still in delirium 01/20: Patient seems to be alert and more cogent ambulate in the halls with physical therapy is still hallucinating but no longer agitated tachycardic or tremulous scheduled phenobarbital discontinued scheduled Librium de-escalated to 25 b.i.d. started on high-dose IV thiamine Review of systems: No fever or chills No nausea Some indigestion after eating but no pain No chest pain palpitations shortness for breath or wheezing No urinary symptoms Physical exam: No longer tremulous but still hallucinating HEENT much less swollen facial features Heart rate and rhythm regular Lungs clear Abdomen nondistended Epigastric tenderness Extremities no edema Assessment and plan: 1. Alcohol withdrawal with hyperactive delirium tremens and escalation despite aggressive treatment with phenobarbital benzodiazepines and Precedex * Alert more cogent no longer tremulous able to ambulate but still hallucinating * De-escalated scheduled Librium, discontinued phenobarbital, and discontinued Precedex * As needed IV Valium p.o. lorazepam * May deescalate down from ICU status 2. Alcoholic pancreatitis * Tolerating diet 3. Alcoholic hepatitis also improving Code: Full, surrogate is patient's spouse DVT: Lovenox daily Dispo: Patient can be de-escalated from ICU status anticipate discharge in 48 hours suggest inpatient rehab or inpatient addiction rehabilitation Time-Based Coding :: 35 minutes spent with patient and on the chart (including review of chart, obtaining history, exam, reviewing outside data, placing orders, documenting exam and treatment plan, and counseling patient) Exam Vital Signs (past 8 hours): - 01/20/25 06:30 01/20/25 07:00 01/20/25 07:00 Pulse Rate 66 65 Respiratory Rate 15 16 Blood Pressure 131/89 Pulse Oximetry Oxygen Delivery Method 01/20/25 07:30 01/20/25 08:00 01/20/25 08:00 Pulse Rate 67 70 Respiratory Rate 23 21 Blood Pressure 134/99 H Pulse Oximetry Oxygen Delivery Method 01/20/25 08:00 01/20/25 08:30 01/20/25 09:00 Pulse Rate 78 Respiratory Rate 24 Blood Pressure 133/86 Pulse Oximetry Oxygen Delivery Method Room Air 01/20/25 09:00 01/20/25 09:33 01/20/25 10:00 Pulse Rate 79 91 H Respiratory Rate 24 Blood Pressure 134/73 Pulse Oximetry 96 Oxygen Delivery Method 01/20/25 10:00 01/20/25 10:30 01/20/25 11:00 Pulse Rate 81 69 Respiratory Rate 25 H 15 Blood Pressure 121/81 Pulse Oximetry 95 95 Oxygen Delivery Method 01/20/25 11:00 01/20/25 11:30 01/20/25 12:00 Pulse Rate 67 65 Respiratory Rate 15 15 Blood Pressure Pulse Oximetry 95 96 Oxygen Delivery Method Room Air 01/20/25 12:08 01/20/25 12:11 01/20/25 12:11 Pulse Rate 83 80 Respiratory Rate 28 H Blood Pressure 126/84 126/84 Pulse Oximetry Oxygen Delivery Method 01/20/25 12:30 01/20/25 13:00 01/20/25 13:00 Pulse Rate 79 72 Respiratory Rate 28 H 22 Blood Pressure 132/93 H Pulse Oximetry Oxygen Delivery Method 01/20/25 13:29 01/20/25 13:29 01/20/25 13:30 Pulse Rate 71 69 Respiratory Rate 25 H 22 Blood Pressure 130/90 Pulse Oximetry Oxygen Delivery Method 01/20/25 14:00 01/20/25 14:00 Pulse Rate 80 Respiratory Rate 22 Blood Pressure 141/87 H Pulse Oximetry Oxygen Delivery Method Oxygen Delivery Method Room Air Oxygen Flow Rate 0 Objective Labs 01/18/25 08:36 01/20/25 04:40 Labs: Laboratory Results - last 24 hr 01/20/25 04:40 Sodium 138 Potassium 3.3 L Chloride 108 H Carbon Dioxide 21 L BUN 5 L Creatinine 0.68 Estimated GFR > 60 BUN/Creatinine Ratio 7.4 Glucose 126 H Calcium 8.3 L PFSH Social History household members: spouse and children alcohol intake: current Assessment & Plan Time-Based Coding :: [TOTAL MINUTES] spent with patient and on the chart (including review of chart, obtaining history, exam, reviewing outside data, placing orders, documenting exam and treatment plan, and counseling patient) on [DATE]. Quality VTE Deep Vein Thrombosis/Pulmonary Embolism Present on Admission: No
[2025-01-20] MEDS: BENZOCAINE/MENTHOL 1 LOZ PKT 1 EACH PO (20:54)
[2025-01-20] MEDS: chlordiazePOXIDE 25 MG CAPSULE PO (20:54)
[2025-01-20] MEDS: LORazepam 1 MG TABLET PO (20:54)
[2025-01-21] VITALS (9 sets, daily range): BP systolic 133–159; BP diastolic 81–90; PULSE 72–89; RESP 16; TEMP 36.1–36.8; O2SAT 85–100
[2025-01-21] MEDS: BENZOCAINE/MENTHOL 1 LOZ PKT 1 EACH PO (03:32)
[2025-01-21] MEDS: LORazepam 1 MG TABLET PO ×2 (03:32→23:13)
[2025-01-21 05:37] LABS: BUN Creatinine Ratio 6.5 (6-22); Blood Urea Nitrogen 5 mg/dL (9-20); Calcium 8.5 mg/dL (8.4-10.2); Carbon Dioxide 25 mmol/L (22-32); Chloride 106 mmol/L (98-107); Estimated Glomerular Filt Rate > 60 mL/min (>60); Glucose 133 mg/dL (70-99); HEMOLYSIS < 15 (0-50); Potassium 4.2 mmol/L (3.4-5.1); Sodium 140 mmol/L (137-145)
[2025-01-21] MEDS: THIAMINE 500 MG in SODIUM CHLORIDE 0.9% 100 ML 420 MG IV ×3 (06:07→22:59)
[2025-01-21] MEDS: FOLIC ACID 1 MG TABLET PO (08:28)
[2025-01-21] MEDS: chlordiazePOXIDE 25 MG CAPSULE PO ×2 (08:28→10:36)
[2025-01-21] MEDS: NICOTINE 14 PATCH 14 MG TOP (08:28)
[2025-01-21] MEDS: MULTIVITAMIN 1 TABLET 1 TAB PO (08:28)
[2025-01-21] MEDS: SODIUM CHLORIDE 0.9% FLUSH 10 ML IV ×2 (08:29→21:11)
--- NOTE | 2025-01-21 13:59 | CM.DPC ---
DCP Cont. Reviewed EMR and team rounds for pt's medical status and updates. Met with pt and discussed [facility] tx options. He has decided to do intensive outpatient, and wanted to stay local. Provided him with the information for [facility], and well as offered information on what to expect with tx. He will discuss with his and update CM on what assistance he needs for next steps prior to d/c home.
[2025-01-21] MEDS: chlordiazePOXIDE 25 MG CAPSULE 50 MG PO ×2 (15:53→21:08)
--- NOTE | 2025-01-21 16:39 | P.PN_ITS ---
Subjective Subjective Interval history: Chief complaint: Alcohol withdrawal and abdominal pain with pancreatitis History of present illness: 01/15: 39 year old male with remote heroin use, EtOH use presented with epigastric abdominal pain starting at 2am this morning. This was sharp, non- radiating pain. Not associated with fever or chills. He has no melena, BRBPR, or hematemesis. He actually denies much nausea or vomiting. He has never had anything like this before. For the past 5 months he has been drinking 1/2 of a fifth of Vodka per day. He has not previously had withdrawals but has never tried to stop drinking. In the ER lipase was >9000. Given fairly minimal pancreatitis symptoms, asked ER to trial diet and pain control for possible outpatient treatment. However shortly after this patient started to withdrawal, with EtOH level of 174. Received 2x 260 mg doses of phenobarb. Patient subsequently started on librium and precedex and admitted to the ICU for treatment of alcohol withdrawal. 39 M with probable alcoholic pancreatitis. CT shows pancreatitis without concern for necrosis. No biliary dilatation. Labs show no sign of infection. Vitals are unremarkable. Patient can trial liquids and oral pain medications. If no tolerance of diet or pain not controled with oral opiates, can admit for fluid hydration and pain control. Hospital course: 01/16: Escalating agitation as the day progressed phenobarbital scheduled added to is IV benzodiazepines scheduled Librium and Precedex Having epigastric pain after yellow or clear liquids 01/17: Agitation is much better after additional phenobarbital to Precedex and Valium and Librium. Patient is still a bit tremulous but does appear a little bit more focused and a little bit more animated lipase is de-escalated from overnight 1002 just over 800, however total bilirubin has escalated to 1.4 from 0.8 01/18: Agitation tachycardia and tremors escalated yesterday with active hallucinosis seeing igor and kobi patient was restarted on Precedex and given boluses of phenobarbital 260 mg intravenously as well as the scheduled 65 IV q.6 hours maintenance Librium 50 t.i.d. and as needed lorazepam and diazepam. Unfortunately the alcohol withdrawal and delirium tremens which this is now, may continued to escalate and if so may require intubation and propofol infusion 01/19: Patient remains on Precedex scheduled phenobarbital and scheduled benzodiazepine with symptom driven as needed doses of benzodiazepines and phenobarbital is sleeping rousable and is feeding himself but still in delirium 01/20: Patient seems to be alert and more cogent ambulate in the halls with physical therapy is still hallucinating but no longer agitated tachycardic or tremulous scheduled phenobarbital discontinued scheduled Librium de-escalated to 25 b.i.d. started on high-dose IV thiamine 01/21: Still having hallucinations, became diaphoretic, increased librium to 50 mg TID with improvement in symptoms this afternoon. Exam Vital Signs (past 8 hours): - 01/21/25 11:53 01/21/25 11:54 01/21/25 11:54 Temperature 98.2 F Pulse Rate 82 86 Blood Pressure 141/88 H Pulse Oximetry 85 L 94 Oxygen Flow Rate 0 01/21/25 15:50 01/21/25 15:50 Temperature 97 F L Pulse Rate 89 Blood Pressure 142/86 H Pulse Oximetry 98 Oxygen Flow Rate 0 Oxygen Delivery Method Room Air Oxygen Flow Rate 0 Narrative Exam Narrative: No longer tremulous but still hallucinating HEENT much less swollen facial features Heart rate and rhythm regular Lungs clear Abdomen nondistended Epigastric tenderness Extremities no edema Objective Labs 01/18/25 08:36 01/21/25 04:47 Labs: Laboratory Results - last 24 hr 01/21/25 04:47 Sodium 140 Potassium 4.2 Chloride 106 Carbon Dioxide 25 BUN 5 L Creatinine 0.77 Estimated GFR > 60 BUN/Creatinine Ratio 6.5 Glucose 133 H Calcium 8.5 PFSH Social History household members: spouse and children alcohol intake: current Assessment & Plan Assessment & Plan narrative: 1. Alcohol withdrawal with hyperactive delirium tremens and escalation despite aggressive treatment with phenobarbital benzodiazepines and Precedex, improving - librium increased to 50 mg TID today now improved symptoms, continue for at least another 24 hours then consider further taper - still having hallucinations overnight, hopefully will improve with librium - continue valium and ativan ( PO) with CIWA protocols 2. Alcoholic pancreatitis * Tolerating diet now seemingly resolved. 3. Alcoholic hepatitis also improving - LFTs near normal. No need for repeat unless recurrent pain or worsening. No LFTs today on labs but chemistry panel otherwise unremarkable today. Code: Full, surrogate is patient's spouse DVT: low risk, ambulating Dispo: likely discharge home with improving symptoms, likely 1-2 days depending on withdrawal symptoms and appropriateness for home management. Quality VTE Deep Vein Thrombosis/Pulmonary Embolism Present on Admission: No
[2025-01-22 01:00] VITALS: BP 164/103
[2025-01-22 01:25] VITALS: BP 148/91
[2025-01-22 04:49] LABS: Add Manual Diff / Slide Review NO; Basophils Absolute Auto 200 /uL (0-100); Eosinophils Absolute Auto 200 /uL (0-450); Eosinophils Percent Auto 3.9 % (2-4); Hematocrit 38.8 % (41-53); Hemoglobin 13.4 g/dL (13.5-17.5); Lymphocytes Absolute Auto 900 /uL (1100-4500); Lymphocytes Percent Auto 13.9 % (25-40); Mean Corpuscular HGB Conc 34.4 % (30-36); Mean Corpuscular Hemoglobin 32.4 PG (26-34); Mean Corpuscular Volume 93.9 fL (80-100); Monocytes Absolute Auto 1200 /uL (0-900); Neutrophils Absolute Auto 3800 /uL (1500-7000); Neutrophils Percent Auto 60.2 % (50-75); Platelet Count 314 X10^3/uL (150-400); Red Blood Cell Count 4.13 X10^6/uL (4.5-5.9); Red Cell Distribution Width 13.4 % (11.6-14.8); White Blood Cell Count 6.3 X10^3/uL (4.5-11.0)
[2025-01-22] MEDS: THIAMINE 500 MG in SODIUM CHLORIDE 0.9% 100 ML 440 MG IV (05:07)
[2025-01-22] MEDS: LORazepam 1 MG TABLET PO (05:07)
[2025-01-22 05:12] VITALS: BP 130/81
[2025-01-22 05:13] VITALS: BP 130/81
[2025-01-22 05:17] LABS: Alanine Aminotransferase 88 IU/L (<50); Albumin 4.1 g/dL (3.5-5.0); Albumin Globulin Ratio 1.5 (1.0-2.8); Alkaline Phosphatase 63 U/L (38-126); Aspartate Aminotransferase 62 IU/L (17-59); BUN Creatinine Ratio 10.1 (6-22); Bilirubin Total 0.4 mg/dL (0.2-1.3); Blood Urea Nitrogen 8 mg/dL (9-20); Carbon Dioxide 28 mmol/L (22-32); Chloride 103 mmol/L (98-107); Estimated Glomerular Filt Rate > 60 mL/min (>60); Globulin 2.8 g/dL (1.7-4.1); Glucose 100 mg/dL (70-99); HEMOLYSIS < 15 (0-50); Potassium 3.9 mmol/L (3.4-5.1); Sodium 139 mmol/L (137-145); Total Protein 6.9 g/dL (6.3-8.2)
[2025-01-22] MEDS: SODIUM CHLORIDE 0.9% FLUSH 10 ML IV (08:39)
[2025-01-22] MEDS: chlordiazePOXIDE 25 MG CAPSULE 50 MG PO (08:39)
[2025-01-22] MEDS: NICOTINE 14 PATCH 14 MG TOP (08:39)
[2025-01-22] MEDS: MULTIVITAMIN 1 TABLET 1 TAB PO (08:40)
[2025-01-22] MEDS: FOLIC ACID 1 MG TABLET PO (08:40)
[2025-01-22 09:00] VITALS: BP 138/88; PULSE 78; RESP 15; TEMP 36.8; O2SAT 98
--- NOTE | 2025-01-22 10:44 | PM.DS.1 ---
History of Present Illness History of Present Illness Date Patient Seen: 01/22/25 Time Patient Seen: 10:44 Chief complaint: Stomach pain this morning Narrative: 39 year old male with remote heroin use, EtOH use presented with epigastric abdominal pain starting at 2am this morning. This was sharp, non-radiating pain. Not associated with fever or chills. He has no melena, BRBPR, or hematemesis. He actually denies much nausea or vomiting. He has never had anything like this before. For the past 5 months he has been drinking 1/2 of a fifth of Vodka per day. He has not previously had withdrawals but has never tried to stop drinking. In the ER lipase was >9000. Given fairly minimal pancreatitis symptoms, asked ER to trial diet and pain control for possible outpatient treatment. However shortly after this patient started to withdrawal, with EtOH level of 174. Received 2x 260 mg doses of phenobarb. Patient subsequently started on librium and precedex and admitted to the ICU for treatment of alcohol withdrawal. Discharge Providers Provider Date of admission: 01/15/25 10:40 Discharge Date: 01/22/25 Primary care physician: Virginia Cox ND Discharge provider: Ammon Ruffin DO Summary Hospital Course Discharge Diagnosis: 1. Alcohol withdrawal with hyperactive delirium tremens and escalation despite aggressive treatment with phenobarbital benzodiazepines and Precedex, improving 2. Alcoholic pancreatitis 3. Alcoholic hepatitis also improving Hospital Course: 39 year old male who was admitted with alcohol withdrawal and alcoholic pancreatitis. He initially required escalating agents including phenobarb, librium and precedex for alcohol withdrawal and admission to the ICU. He began to have hallucinations a few days into admission, but had no seizures and subsequently began to improve. His diet was advanced to regular fairly quickly and he had no ongoing abdominal pain with regards to his pancreatitis. He again developed mild withdrawal symptoms with removal of phenobarbital, but this improved with increase in librium dosing on 01/21. On 01/22 the patient was without ongoing withdrawal symptoms on 50 mg TID of librium. He wished to discharge home on librium taper. I counseled him on not exactly knowing how he will respond to librium taper at home and risk for recurrent withdrawal symptoms including hallucinations or seizure. He determined this risk was acceptable to him and elected for discharge home. He was given a 1 week taper of librium to take at home. I completed paid leave paperwork for the patient, if stable he should be able to return to work after completion of librium taper. Time Spent with Patient Time spent: Greater than 30 minutes Exam Vital Signs (past 8 hours): - 01/22/25 05:12 01/22/25 05:13 01/22/25 09:00 Temperature 98.3 F Pulse Rate 78 Respiratory Rate 15 Blood Pressure 130/81 130/81 138/88 Pulse Oximetry 98 Oxygen Flow Rate 0 Oxygen Delivery Method Room Air Oxygen Flow Rate 0 Narrative Exam Narrative: WDWN male, no acute distress, mildly irritated RRR no m/r/g CTA b/l lungs Abdomen S NT ND Extremities no edema nor tremuloussness. No tongue fasciculations. Objective Labs 01/22/25 04:30 01/22/25 04:30 Labs: Laboratory Results - last 24 hr 01/22/25 04:30 WBC 6.3 RBC 4.13 L Hgb 13.4 L Hct 38.8 L MCV 93.9 MCH 32.4 MCHC 34.4 RDW 13.4 Plt Count 314 Neut % (Auto) 60.2 Lymph % (Auto) 13.9 L [place] % (Auto) 19.0 H Eos % (Auto) 3.9 Baso % (Auto) 3.0 H Neut # (Auto) 3800 Lymph # (Auto) 900 L [place] # (Auto) 1200 H Eos # (Auto) 200 Baso # (Auto) 200 H Sodium 139 Potassium 3.9 Chloride 103 Carbon Dioxide 28 BUN 8 L Creatinine 0.79 Estimated GFR > 60 BUN/Creatinine Ratio 10.1 Glucose 100 H Calcium 9.0 Magnesium 2.0 Total Bilirubin 0.4 AST 62 H ALT 88 H Alkaline Phosphatase 63 Total Protein 6.9 Albumin 4.1 Globulin 2.8 Albumin/Globulin Ratio 1.5 [facility] Social History household members: spouse and children alcohol intake: current Discharge Plan Discharge Plan Patient Disposition: Home Provider Discharge Comment: You were admitted to the hospital for alcohol withdrawal and pancreatitis. You wished to discharge home, this can be done with librium taper which was sent to the pharmacy. Watch for withdrawal seizure or hallucinations, please seek additional care if these recur. Discharge orders & Medications Prescriptions: New chlordiazepoxide HCl 25 mg capsule See Rx Instructions .ROUTE .COMPLEX Qty: 18 0RF Rx Instructions: Take 2 caps (50 mg) TID for 1 day, then 25 mg TID for 2 days, 25 mg BID for 2 days, then 25 mg daily for 2 days then stop. Follow up/Referrals: Virginia Cox ND [Primary Care Provider, Naturopathy] Diet/Activity/Treatments Diet: Diet as Tolerated and Regular Activity: As tolerated, no restrictions Visit Report/Discharge Packet Stand Alone Forms: Patient Portal/API, Stroke Signs & Symptoms Discharge Data Primary Care Provider: Virginia Cox Quality VTE Deep Vein Thrombosis/Pulmonary Embolism Present on Admission: No
--- NOTE | 2025-01-22 11:53 | DIET.CONS ---
Dietary Consultation Note Admission Date: 01/15/2025 10:40 Assessment: 39 y M admitted for alcohol withdrawal and pancreatitis. RD screened for LOS. Met with pt and spouse in room. Reports weight gain in last 6 months. Have questions regarding dietary patterns to follow. Reports good appetite and diet tolerance. Reviewed dietary reccs and answered questions. Pt discharging today. Ht: 187.96 cm Wt: 93 kg BMI: 26.3 UBW: 180 lb Last BM: 01/20/25 (01/20/25 18:00) MNA: 12 Zay Score: 21 Nutrition Percent Meal Consumed 100% 01/22/25 10:07 Percent Meal Consumed 100% 01/21/25 18:14 Percent Meal Consumed 100% 01/21/25 09:48 Percent Meal Consumed 100% 01/20/25 18:00 Labs: RBC 4.13 X10^6/uL (4.5-5.9) L 01/22/25 04:30 Hgb 13.4 g/dL (13.5-17.5) L 01/22/25 04:30 Hct 38.8 % (41-53) L 01/22/25 04:30 Creatinine 0.79 mg/dL (0.66-1.25) 01/22/25 04:30 Electronically Signed by: Jesica Nieves 01/22/25 11:53 Clinical Dietitian [address] [address]
--- NOTE | 2025-01-22 13:55 | CM.DPC ---
DCP Discharge Home Per MD, anticipated beginning librium taper today as pt needed high doses yesterday with still some visual disturbances but pt wanting to d/c home on taper and MD completed discharge. SW met bedside with pt and he confirms he plans to attempt IOP at [facility] and spouse will arrive later this morning to provide transport home and might have questions. SW went by room later and no spouse bedside yet and then went by the room again and pt had discharged home and RN provided d/c instructions. Pt and spouse had been given multiple ETOH resources and options including Inpt vs Outpt during pt's admission. CRISTOPHER Merchant
--- NOTE | 2025-01-22 14:59 | PC.NURSE ---
Patient is ambulating in the room, VSS, afebrile on RA. He is NSR on telemetry and CIWA score this a.m. is 2. He tolerates breakfast well eating 100%. He showers independtly and ambulates in the hallways. He is eager for discharge home today and the hospitalist discusses plan for discharge with librium to patient who acknowledges understanding. Patient's is notified and [facility] arrives to transport patient home. He is escorted by RN to private vehicle with at 1 pm today with all of his personal belongings.
== END 2025-01-22 13:00 | disposition home or self-care (01) | DRG 896 ==
LOC: ED 07:18 → AC 10:40 → ICU 11:27
PROVIDERS: Internal Medicine; Admitting Provider Internal Medicine; Emergency Provider Emergency Medicine; PCP Naturopath; Referring Provider Emergency Medicine; Visit Provider Internal Medicine
DX: F10.231 Alcohol dependence with withdrawal delirium (principal); K85.20 Alcohol induced acute pancreatitis without necrosis or infection; K70.10 Alcoholic hepatitis without ascites; Y90.6 Blood alcohol level of 120-199 mg/100 ml
CPT/HCPCS: 36415; 70450; 74177; 80048; 80053; 80320; 81003; 81015; 83690; 83735; 85025; 85610; 85730; 87797; 93005; 96361; 96365; 96366; 96375; 99284; 99291; J1650; J1885; J2270; J2405; J2470; J2560; J3360; Q9967

== ENCOUNTER → 2025-02-23 14:37 | Outpatient (CLI) | payer OTHER, SELFPAY ==
[2025-01-15 13:45] VITALS: BMI 26.3
--- NOTE | 2025-02-23 14:40 | DI.US.S_ITS ---
PROCEDURE: US PERIPH VENOUS UP EXTREM STANLEY INDICATIONS: BILAT SWELLING TECHNIQUE: Real-time imaging, as well as color and pulse Doppler interrogation, was performed of both upper extremity deep veins from the inferior neck to the antecubital fossa. COMPARISON: None. FINDINGS: Right: The internal jugular veins, visualized portions of the subclavian veins, axillary veins, and brachial veins are free of intraluminal thrombus. Where physically possible, the veins are normally compressible. Color and pulse Doppler demonstrate normal intraluminal flow, with expected phasicity and pulsatility. Additional scanning of the cephalic and basilic veins of the superficial system. There is thrombus it at the antecubital fossa measuring 8 cm. Left: The internal jugular veins, visualized portions of the subclavian veins, axillary veins, and brachial veins are free of intraluminal thrombus. Where physically possible, the veins are normally compressible. Color and pulse Doppler demonstrate normal intraluminal flow, with expected phasicity and pulsatility. Additional scanning of the cephalic and basilic veins of the superficial system. There is thrombus at the mid forearm extending to the mid biceps cephalic vein. IMPRESSION: 1. No upper extremity DVT. 2. Long segment superficial thrombophlebitis in the cephalic veins bilaterally. Dictated by: Brent Viveros M.D. on 02/23/2025 at 22:14 Approved by: Brent Viveros M.D. on 02/23/2025 at 22:16
== END ==
LOC: US 14:38
PROVIDERS: PCP Family Medicine; Referring Provider Family Medicine; Visit Provider Family Medicine
DX: I80.8 Phlebitis and thrombophlebitis of other sites (principal); M79.601 Pain in right arm; M79.602 Pain in left arm
CPT/HCPCS: 93970